=== PATIENT | male | born 1945 | race Caucasian/White ===

== ENCOUNTER 2024-05-16 01:57 | Inpatient (IN) | payer MEDICARE, OTHER, SELFPAY ==
[2024-05-16] VITALS (13 sets, daily range): BP systolic 129–167; BP diastolic 73–99; PULSE 77–103; RESP 13–28; TEMP 36.6–37.1; O2SAT 94–99; BMI 27.8; BMI 26.6; BMI 27.3
--- NOTE | 2024-05-16 02:26 | RAD_ITS ---
INDICATION: chest pain EXAMINATION/TECHNIQUE: X-RAY - XR Chest 2 Views COMPARISON: No relevant prior comparison study available FINDINGS: LINES/DEVICES: None. LUNGS: No consolidation, edema or effusion. No pneumothorax. MEDIASTINUM AND CARDIOVASCULAR STRUCTURES: Cardiac silhouette not enlarged. Central airways and mediastinal contour are unremarkable. BONES AND SOFT TISSUES: Unremarkable. RAD/Chest PA and Lateral IMPRESSION: No radiographic evidence of acute cardiopulmonary disease. Electronically Signed: Joyce Hernandez MD at 3:39 EDT ,
[2024-05-16] MEDS: Nitroglycerin Oint 1 INCH PACKET TD ×4 (02:34→21:09)
[2024-05-16] MEDS: 0.9% Normal Saline (1000mL) 1,000 ML 200 ML IV (02:34)
--- NOTE | 2024-05-16 02:35 | EX.ED.DYSGE1 ---
HPI History of Present Illness Chief Complaint: Chest Pain Informant: patient, spouse/S.O. and EMS Narrative Narrative: Patient is a 78-year-old male with past medical history of GERD and known right bundle branch block. He states that he went to bed normally and then awoke around 1:15 in the morning with sensation of chest discomfort that he states was radiating towards the left and right shoulder as well as his jaw. He states it was more of a pressure sensation and with this he had shortness of breath and diaphoresis. He reports that his father had multiple heart attacks starting at age 50. With concern this was cardiac in nature EMS was called. EMS confirmed he did look pale and diaphoretic and provided 4 baby aspirin and a subungual nitro. Upon arrival to the ER the patient reports that his symptoms have almost completely resolved. However as there is concern that this was an acute coronary event he presents for evaluation. He denies any recent surgery travel or history of DVT/PE [facility] Medical History (Updated 05/16/24 @ 06:[address] Kishor Cyr, DO) Osteoporosis Asthma Myocardial infarct Chest pain Squamous cell carcinoma Non-cancerous growth of soft tissue Right shoulder tendonitis GERD (gastroesophageal reflux disease) Right bundle branch block Home Medications ?Medication ?Instructions ?Recorded ?Last Taken ?Type cholecalciferol (vitamin D3) 50 50 mcg PO QODAY 05/16/24 Unknown History mcg (2,000 unit) capsule (Vitamin D3) cyanocobalamin (vitamin B-12) 1,000 mcg PO DAILY 05/16/24 Unknown History 1,000 mcg capsule fluticasone propionate 50 2 spray intranasal DAILY PRN 05/16/24 Unknown History mcg/actuation nasal allergy symptoms spray,suspension (24 Hour Allergy Relief) omeprazole 20 mg capsule,delayed 20 mg PO DAILY 05/16/24 Unknown History release Allergy/AdvReac Type Severity Reaction Status Date / Time amoxicillin (From Augmentin) Allergy Severe Abd Verified 05/16/24 02:06 cramps/diarrhea clavulanic acid (From Allergy Severe Abd Verified 05/16/24 02:06 Augmentin) cramps/diarrhea etodolac Allergy Severe liver Verified 05/16/24 02:06 problems fluoxetine (From Prozac) Allergy Intermediate Hives Verified 05/16/24 02:06 Seasonal Allergies: Uncoded Allergy Intermediate sneezing Verified 05/16/24 02:06 Family History (Updated 05/16/24 @ 04:[address] Nathalie Escobar DO) Other Heart disease Hypertension Surgical History History of tonsillectomy and adenoidectomy Social History (Updated 05/16/24 @ 04:[address] Nathalie Escobar DO) household members: spouse housing: house current occupational status: retired Smoking Status: Never smoker substance use type: does not use ROS ROS ED Constitutional Constitutional ED: Reports sweats; Denies chills or fever(s) Eyes Eyes: Denies blurry vision or change in vision ENT ENT ED: Denies rhinorrhea or sore throat Cardiovascular Cardiovascular: Reports chest pain, palpitations and racing heartbeat Respiratory/Chest Respiratory/Chest: Reports dyspnea; Denies cough Gastrointestinal Gastrointestinal: Reports nausea; Denies abdominal pain, diarrhea or vomiting Genitourinary Genitourinary ED: Denies dysuria Musculoskeletal Musculoskeletal: Denies myalgias Integumentary Denies rash Neurologic Neurologic: Denies headache(s) Psychiatric Psychiatric: Reports anxiety Hematologic/Lymphatic Hematologic/Lymphatic: Denies easy bleeding or easy bruising EXAM Physical Exam Const Vital Signs: 05/16/24 01:58 05/16/24 02:09 05/16/24 02:58 Temperature 98.1 F Temperature Source Temporal Pulse Rate 79 79 Respiratory Rate 15 13 Respiratory Effort Normal Non-Labored Blood Pressure 167/94 H 154/84 H Blood Pressure Mean 118 107 Pulse Ox 95 99 Oxygen Delivery Method Room Air Room Air 05/16/24 04:00 Temperature Temperature Source Pulse Rate 100 Respiratory Rate 28 H Respiratory Effort Blood Pressure 154/86 H Blood Pressure Mean 108 Pulse Ox 98 Oxygen Delivery Method Room Air Positive well nourished and well developed General Appearance ED: well developed; Negative for pallor HEENT HEENT Narrative: Normocephalic atraumatic Eyes PERRL and EOMs intact bilaterally General Eye ED: Negative for pale conjunctiva or scleral icterus Neck supple and no JVD Chest Wall palpation of chest normal Chest Narrative: No bony deformity or crepitance noted No reproducible pain with palpation Resp normal respiratory effort and clear to auscultation bilaterally Cardio regular rate and regular rhythm Rate: other Other Details: Heart is regular rate and rhythm without murmurs rubs or gallop There is frequent ectopic beat noted Radial and carotid pulses are equal and symmetric GI normal to inspection, nondistended, normoactive bowel sounds, non-tender, non-distended and no masses GI Narrative: No voluntary guarding rigidity or pulsatile mass Auscultation: normoactive bowel sounds Palpation: soft Extremity normal to inspection Extremity Narrative: No asymmetric edema no pitting edema negative Homans' sign bilaterally Neuro oriented x3, CN's II-XII intact bilaterally and no sensory deficits noted Sensorium / Orientation: alert Motor Exam: strength 5/5 throughout Psych mental status grossly normal Skin no rashes or lesions noted and no wounds General Skin Exam: Negative for jaundice or pallor MDM MDM MDM Narrative Medical decision making narrative: Patient presented to the ER mildly hypertensive but otherwise with stable vitals. He reported that he he was having near resolution of his pain after receiving aspirin and nitro per EMS. Patient has a significant family history of coronary artery disease in his father but otherwise does not have traditional risk factors such as hypertension hyperlipidemia diabetes or smoking. His history is significant for acute coronary syndrome versus non-STEMI versus unstable angina. There is concern for acute kidney injury versus electrolyte abnormality such as hypokalemia or hypomagnesemia. There is also potential for lung pathology such as pneumonia or pneumothorax. Secondary to this basic labs were obtained. Patient's initial troponin was elevated 99 consistent with a non-STEMI. 2-hour delta increased to approximately 2000 which correlates with his presentation of symptoms. After his sublingual nitro essentially resolved his pain an inch of paste was applied. With the Nitropaste applied patient reported complete resolution of his chest discomfort. Chest x-ray revealed no lung pathology. At this time based on his elevated troponins he will need admitted for further testing such as stress test echo and heart cath. He was started on a heparin drip secondary to concern for non-STEMI. Medicine was contacted and they do agree to accept the patient at this time. Patient has remained hemodynamically stable and has reported complete resolution of his chest pain after nitroglycerin was applied. History & Record Review Discussion w/independent historian: Patient and Significant other Lab Data Attestation: I reviewed the patient's lab results. Labs: Laboratory Results - last 24 hr 05/16/24 05/16/24 05/16/24 02:19 03:41 04:18 WBC 10.6 RBC 4.45 L Hgb 13.2 Hct 40.2 MCV 90.3 MCH 29.7 MCHC 32.8 RDW Std Deviation 43.9 RDW Coeff of Maria G 13.3 Plt Count 388 MPV 8.9 Immature Gran % (Auto) 0.300 Neut % (Auto) 43.0 L Lymph % (Auto) 43.2 H [place] % (Auto) 9.9 Eos % (Auto) 2.7 Baso % (Auto) 0.9 Absolute Neuts (auto) 4.5 Absolute Lymphs (auto) 4.56 H Nucleated RBC % 0.2 PT 14.9 14.1 INR 1.2 1.1 APTT 28.6 27.8 Sodium 137 Potassium 3.8 Chloride 105 Carbon Dioxide 23.0 Anion Gap 9 BUN 17 Creatinine 1.22 Estim Creat Clear Calc 57.88 Est GFR (MDRD) Af Amer 74 Est GFR (MDRD) Non-Af 61 BUN/Creatinine Ratio 13.9 Glucose 134 H Calcium 9.2 Magnesium 2.2 Troponin I High Sens 99 H 2086 H* Radiography Diagnostic Testing: Clinical Impression(s) from Imaging Studies Chest X-Ray 05/16/24 02:26 IMPRESSION: No radiographic evidence of acute cardiopulmonary disease. Electronically Signed: Joyce Hernandez MD at 3:39 EDT Reading Location ID and State: [facility] / [place] Tel , Service support , Chest x-ray as interpreted by the emergency medicine physician reveals no acute infiltrate pneumothorax pleural effusion or widening of the mediastinum Management Discussion w/another healthcare provider: Hospitalist Critical Care Time Critical Care Time: Yes Critical care time (excluding procedures): Discussing w/Patient &/or Family/Batt Packer, Discussing w/Consultants and - (Critical care time of 33 minutes) Discharge Plan Dx/Rx/DC Orders Clinical Impression: NSTEMI, initial episode of care, Elevated blood pressure reading Disposition Disposition: Acute Care Hospital [facility] Discharge Date/Time: 05/16/24 04:48
[2024-05-16 02:37] LABS: Absolute Lymphocyte Count 4.56 X10^3/uL (0.83-4.51); Absolute Neutrophil Count 4.5 X10^3/uL (2.0-7.7); Basophil% 0.9 % (0-1); Eosinophil# 0.28 X10^3/uL; Eosinophils% 2.7 % (0-5); Hematocrit 40.2 % (40-54); Hemoglobin 13.2 g/dL (13.0-16.5); Lymphocyte # 4.56 X10^3/ul (0.83-4.51); Lymphocyte % 43.2 % (19-41); Mean Corp Hgb Conc 32.8 g/dL (32-36); Mean Corpuscular Hgb 29.7 pg (27.0-32.0); Mean Corpuscular Volume 90.3 fL (80-94); Mean Platelet Vol. 8.9 fl (6.2-12.0); Monocyte# 1.04 X10^3/uL; Monocyte% 9.9 % (0-10); NRBC Flagged by Analyzer 0.2 % (0-5); Neutrophil # 4.54 X10^3/uL (2.7-7.7); Platelet Count 388 K/mm3 (150-450); RBC Distribution Width CV 13.3 % (11.6-14.6); RBC Distribution Width SD 43.9 fl (35.1-43.9); Red Blood Count 4.45 M/mm3 (4.6-6.2); White Blood Count 10.6 K/mm3 (4.4-11.0)
[2024-05-16 02:47] LABS: International Normalized Ratio 1.2; Prothrombin Time (Protime)PT. 14.9 SECONDS (11.7-14.9)
[2024-05-16 02:48] LABS: Partial Thromboplast Time 28.6 Seconds (24.1-36.2)
[2024-05-16 03:27] LABS: Anion Gap 9 (5-15); BUN 17 mg/dL (7-18); BUN/Creat Ratio 13.9 RATIO (10-20); Calcium,Total 9.2 mg/dL (8.5-10.1); Chloride 105 mmol/L (98-107); Creatinine, Serum 1.22 mg/dL (0.70-1.30); EST Glomerular Filtration Rate 61 mL/min (>60); Est Glom Filt Rate - Afr Amer 74 mL/min (>60); Estimated Creatinine Clearance 57.88 ml/min; Glucose 134 mg/dL (74-106); Magnesium 2.2 mg/dL (1.6-2.6); Potassium 3.8 mmol/L (3.5-5.1); Sodium Level 137 mmol/L (136-145); Troponin-I HS 99 pg/mL (3.0-78.0)
--- NOTE | 2024-05-16 04:32 | HP.PCM.HOS_ITS ---
HPI - General General Date of Admission: 05/16/24 Date of Service: 05/16/24 Chief Complaint: Chest pain HPI Narrative MAYKEL PRAJAPATI, is a 78 M who presented to the emergency department at [facility] on 05/16/2024 early in the morning with chest pain. He reported that he went to bed normally and then woke up around 1:15 in the morning with a sensation of chest discomfort. Pain was radiating towards his left and right shoulder as well into his jaw bilaterally. He indicated it was more of a pressure-like sensation and sharp pain and he had associated shortness of breath and diaphoresis. Patient did report that over the last couple days he has been more fatigued than typical. He has had to do some housework and is noted that he has had worsening shortness of breath with exertion as well as significant fatigue that is not his baseline. Patient reported his father had multiple heart attacks starting at the age of 50 but he has never had any cardiac issues previously. He does not have a history of elevated blood pressure, diabetes, hyperlipidemia, or tobacco abuse. EMS was called due to his symptoms and they did confirm that he looks pale and diaphoretic upon arrival. He was given 4 baby aspirin and 1 sublingual nitroglycerin. Upon arrival to the emergency department his symptoms had almost completely resolved and did completely resolve after he was placed on 1 inch of Nitropaste. He was asymptomatic at the time of my evaluation. Vital signs on presentation showed a temperature of 98.1, heart rate 79, respiratory rate 15, blood pressure 167/94 and pulse ox was 95% on room air. His CBC was overtly unremarkable other than a leukocytosis with 43.2% lymphocytosis. Coags were normal. Chemistry panel was unremarkable other than hyperglycemia with a glucose of 134. Initial troponin was 99 with a delta troponin of 2086. Chest x-ray was unremarkable. EKG showed what seems to be a rate variable bundle branch block. He has documentation of previous RBBB. There were no ST-T wave segments consistent with acute ischemia. Intervals were normal and few PACs were noted. [facility] Medical History Squamous cell carcinoma Non-cancerous growth of soft tissue Right shoulder tendonitis GERD (gastroesophageal reflux disease) Right bundle branch block Home Medications ?Medication ?Instructions ?Recorded ?Last Taken ?Type cholecalciferol (vitamin D3) 50 50 mcg PO QODAY 05/16/24 Unknown History mcg (2,000 unit) capsule (Vitamin D3) cyanocobalamin (vitamin B-12) 1,000 mcg PO DAILY 05/16/24 Unknown History 1,000 mcg capsule fluticasone propionate 50 2 spray intranasal DAILY PRN 05/16/24 Unknown History mcg/actuation nasal allergy symptoms spray,suspension (24 Hour Allergy Relief) omeprazole 20 mg capsule,delayed 20 mg PO DAILY 05/16/24 Unknown History release Allergy/AdvReac Type Severity Reaction Status Date / Time amoxicillin (From Augmentin) Allergy Severe Abd Verified 05/16/24 02:06 cramps/diarrhea clavulanic acid (From Allergy Severe Abd Verified 05/16/24 02:06 Augmentin) cramps/diarrhea etodolac Allergy Severe liver Verified 05/16/24 02:06 problems fluoxetine (From Prozac) Allergy Intermediate Hives Verified 05/16/24 02:06 Seasonal Allergies: Uncoded Allergy Intermediate sneezing Verified 05/16/24 02:06 Family History (Updated 05/16/24 @ 04:[address] Nathalie Escobar DO) Other Heart disease Hypertension Surgical History (Updated 05/16/24 @ 02:09 by Leny Hart) History of tonsillectomy and adenoidectomy Social History (Updated 05/16/24 @ 04:[address] Nathalie Escobar DO) household members: spouse housing: house current occupational status: retired Smoking Status: Never smoker substance use type: does not use ROS Constitutional Constitutional: Reports fatigue; Denies anorexia, change in weight, chills, fever(s), malaise, night sweats, weakness or other Eyes Eyes: Denies blurry vision, change in eye color, change in vision, discharge from eye(s), double vision, erythema, eye pain, loss of vision or other ENT HEENT: Denies abnormal hearing, dysphagia, ear pain, epistaxis, headache(s), hearing loss, nasal congestion, nasal discharge, post nasal drip, sinus pressure, sore throat or other Cardiovascular Cardiovascular: Reports chest pain, dyspnea on exertion and other Details: Diaphoresis ; Denies claudication, edema, lightheadedness, orthopnea, palpitations, paroxysmal nocturnal dyspnea, rapid heart rate or syncope Respiratory/Chest Respiratory/Chest: Reports dyspnea; Denies cough, excessive phlegm production, hemoptysis, productive cough, shortness of breath at rest, shortness of breath with exertion, wheezing or other Gastrointestinal Gastrointestinal: Denies abdominal pain, coffee ground emesis, constipation, diarrhea, dyspepsia, hematemesis, hematochezia, loose stools, melena, nausea, vomiting or other Genitourinary Genitourinary: Denies burning urination, difficulty urinating, dysuria, hematuria, nocturia, urinary frequency, urinary hesitancy, urinary incontinence, urinary urgency or other Musculoskeletal Musculoskeletal: Reports other Details: Bilateral shoulder and jaw pain ; Denies arthralgias, back pain, joint pain, joint stiffness, joint swelling, myalgias or neck pain Neurologic Neurologic: Denies abnormal gait, abnormal speech, confusion, disequilibrium, dizziness, focal weakness, headache(s), numbness, paresthesias, seizure-like activity, seizures, syncope, tingling, tremor(s) or other Psychiatric Psychiatric: Denies anxiety, depression, homicidal ideation, suicidal ideation or other Endocrine Endocrinology: Denies change in body appearance, cold intolerance, excessive sweating, heat intolerance, polydipsia, polyuria or other Hematologic/Lymphatic Hematologic/Lymphatic: Denies anemia, easy bleeding, easy bruising, lymphadenopathy or other Allergic/Immunologic Allergic/Immunologic: Denies rhinitis, hives, eczemia, asthma or other Vital Signs Vital Signs Vital Signs: 05/16/24 01:58 05/16/24 02:09 05/16/24 02:58 Temperature 98.1 F Temperature Source Temporal Pulse Rate 79 79 Respiratory Rate 15 13 Respiratory Effort Normal Non-Labored Blood Pressure 167/94 H 154/84 H Blood Pressure Mean 118 107 Pulse Ox 95 99 Oxygen Delivery Method Room Air Room Air 05/16/24 04:00 05/16/24 04:25 Temperature 98.1 F Temperature Source Pulse Rate 100 77 Respiratory Rate 28 H 15 Respiratory Effort Blood Pressure 154/86 H 156/93 H Blood Pressure Mean 108 114 Pulse Ox 98 99 Oxygen Delivery Method Room Air Weight Weight: 89.1 kg Body Mass Index (BMI) 27.8 Physical Exam Const alert, oriented x3, no apparent distress and well nourished Constitutional Narrative: Very pleasant, older, white male, lying in bed, currently appears comfortable, does not appear toxic, at bedside General Appearance: cooperative HEENT normocephalic, head/scalp atraumatic, hearing grossly normal bilaterally and moist oral mucous membranes HEENT Narrative: Mallampati 2, no thrush Resp normal respiratory effort, no retractions, no use of accessory muscles and clear to auscultation bilaterally Auscultation: Negative for rales, rhonchi or wheezes Cardio regular rate, regular rhythm, S1 normal heart sound, S2 normal heart sound, no murmurs, no rub, no gallops and no clicks Cardio Narrative: Few ectopic beats GI normal to inspection, nondistended, normoactive bowel sounds, soft to palpation and non-tender Extremity no clubbing, cyanosis or edema Extremity Narrative: 2+ pedal pulses, 2+ radial pulses Neuro oriented x3, moves all extremities and no focal motor deficits Speech: speech normal Psych affect normal Psych Narrative: Extremely pleasant, interacts appropriately Results Lab / Micro Data 05/16/24 02:19 05/16/24 02:19 Labs: Laboratory Results - last 24 hr 05/16/24 02:19: WBC 10.6, RBC 4.45 L, Hgb 13.2, Hct 40.2, MCV 90.3, MCH 29.7, MCHC 32.8, RDW Std Deviation 43.9, RDW Coeff of Maria G 13.3, Plt Count 388, MPV 8.9, Immature Gran % (Auto) 0.300, Neut % (Auto) 43.0 L, Lymph % (Auto) 43.2 H, [place] % (Auto) 9.9, Eos % (Auto) 2.7, Baso % (Auto) 0.9, Absolute Neuts (auto) 4.5, Absolute Lymphs (auto) 4.56 H, Nucleated RBC % 0.2, PT 14.9, INR 1.2, APTT 28.6, Sodium 137, Potassium 3.8, Chloride 105, Carbon Dioxide 23.0, Anion Gap 9, BUN 17, Creatinine 1.22, Estim Creat Clear Calc 57.88, Est GFR (MDRD) Af Amer 74, Est GFR (MDRD) Non-Af 61, BUN/Creatinine Ratio 13.9, Glucose 134 H, Calcium 9.2, Magnesium 2.2, Troponin I High Sens 99 H Imaging Radiology Impression Chest X-Ray 05/16/24 02:26 IMPRESSION: No radiographic evidence of acute cardiopulmonary disease. Electronically Signed: Joyce Hernandez MD at 3:39 EDT Reading Location ID and State: [facility] / [place] Tel , Service support , Assessment & Plan Assessment/Plan (1) NSTEMI, initial episode of care: (2) Hyperglycemia: (3) Elevated blood pressure reading: PLAN: Plan NSTEMI -Initial troponin 99 with repeat pending at admission -Will do full cycling of cardiac enzymes -Continue Nitropaste -Start heparin drip -Aspirin 81 mg daily -High intensity dose statin and will check lipid profile -Check hemoglobin A1c -Coreg 3.125 twice daily -Could consider addition of lisinopril if blood pressure remains elevated despite Coreg -Cardiac diet -Check echocardiogram -Consult cardiology for cardiac catheterization on Friday Elevated blood pressure -Patient without documented history of hypertension -Unclear if this is due to acute stress or if he has underlying undiagnosed hypertension -Start Coreg 3.125 twice daily -Continue to monitor Chronic right bundle branch block -Appears that may be rate variable -Patient will be monitored on telemetry Hyperglycemia without history of DM-2 -Check hemoglobin A1c -Elevation is only mild and may be stress response GERD -Continue home PPI Seasonal allergies -Continue home nasal spray DVT prophylaxis -Heparin drip CODE STATUS -Full code as verified on admission Charges/Coding Visit Charges Inpatient E&M: 97394 Init Hosp L2
[2024-05-16] MEDS: HEPARIN/D5w 25,000 UNITS 25,000 UNITS/250 ML IV.SOLN. 10 UNITS CONT INF (04:35)
[2024-05-16] MEDS: Heparin Injection (Vial) 5,000 UNIT/ML VIAL 4000 UNIT IV (04:36)
[2024-05-16 04:44] LABS: International Normalized Ratio 1.1; Prothrombin Time (Protime)PT. 14.1 SECONDS (11.7-14.9)
[2024-05-16 04:45] LABS: Partial Thromboplast Time 27.8 Seconds (24.1-36.2)
[2024-05-16 04:45] LABS: Troponin-I HS 2086 pg/mL (3.0-78.0)
--- NOTE | 2024-05-16 04:56 | PCM.HOSP.N ---
Hospitalist Note CODE STATUS as documented in H&P was noted as full code however this was documented in error and patient is DNR CCA okay for short-term intubation. I did discuss that his CODE STATUS would be revoked during cardiac catheterization when performed and he voiced understanding and was agreeable to this.
--- NOTE | 2024-05-16 05:33 | EKG12_ITS ---
Test Reason : CP Blood Pressure : / mmHG Vent. Rate : 105 BPM Atrial Rate : 105 BPM P-R Int : 160 ms QRS Dur : 122 ms QT Int : 386 ms P-R-T Axes : 048 084 011 degrees QTc Int : 510 ms Sinus tachycardia with Premature atrial complexes Right bundle branch block Abnormal ECG When compared with ECG of 16-MAY-2024 01:59, MANUAL COMPARISON REQUIRED, DATA IS UNCONFIRMED Confirmed by Caleb Olivarez ([id number]), movie editor KAY AVILES ([id number]) on 05/18/2024 6:43:25 AM Referred By: DAVID Confirmed By:Claeb Olivarez
--- NOTE | 2024-05-16 05:59 | EKG12_ITS ---
Test Reason : CP Blood Pressure : / mmHG Vent. Rate : 076 BPM Atrial Rate : 076 BPM P-R Int : 154 ms QRS Dur : 124 ms QT Int : 430 ms P-R-T Axes : 055 082 030 degrees QTc Int : 483 ms Sinus rhythm with marked sinus arrhythmia with Premature ventricular complexes Right bundle branch block Abnormal ECG Confirmed by Caleb Olivarez ([id number]), deputy editor in chief KAY AVILES ([id number]) on 05/17/2024 10:54:28 AM Referred By: GABRIEL Confirmed By:Caleb Olivarez
--- NOTE | 2024-05-16 06:50 | PN.HOSP_ITS ---
Reason for Visit Reason for Visit: Diagnoses Non-ST elevation (NSTEMI) myocardial infarction (05/16/24) Elevated blood-pressure reading, without diagnosis of hypertension (05/16/24) Hyperglycemia, unspecified (05/16/24) Subjective Subjective Patient notes feeling significantly improved since initial ED arrival with improvement of chest pain now only in the midsternal region without radiation and reports it is more of an ache as if he is stretching and pull something rating it 1-2 out of 10 in severity. He denies any dyspnea, diaphoresis or nausea since initial arrival. Discussed plan of care which include cardiac catheterization 05/17/24, echocardiogram to which patient is amenable. Patient denies fevers, chills, nausea, emesis, abdominal pain or dyspnea. Objective Data Objective Data Vital Signs: Vital Signs Temp Pulse Resp BP Pulse Ox O2 Del Method 98.4 F 89 16 148/92 H 99 Room Air 05/16/24 05:04 05/16/24 06:21 05/16/24 05:04 05/16/24 06:33 05/16/24 05:04 05/16/24 05:04 Oxygen Delivery Method Room Air Weight: 188 lb 11.451 oz Body Mass Index (BMI) 26.6 Lab / Micro Data 05/16/24 07:54 05/16/24 07:54 Labs: Laboratory Results - last 24 hr 05/16/24 02:19: WBC 10.6, RBC 4.45 L, Hgb 13.2, Hct 40.2, MCV 90.3, MCH 29.7, MCHC 32.8, RDW Std Deviation 43.9, RDW Coeff of Maria G 13.3, Plt Count 388, MPV 8.9, Immature Gran % (Auto) 0.300, Neut % (Auto) 43.0 L, Lymph % (Auto) 43.2 H, [place] % (Auto) 9.9, Eos % (Auto) 2.7, Baso % (Auto) 0.9, Absolute Neuts (auto) 4.5, Absolute Lymphs (auto) 4.56 H, Nucleated RBC % 0.2, PT 14.9, INR 1.2, APTT 28.6, Sodium 137, Potassium 3.8, Chloride 105, Carbon Dioxide 23.0, Anion Gap 9, BUN 17, Creatinine 1.22, Estim Creat Clear Calc 57.88, Est GFR (MDRD) Af Amer 74, Est GFR (MDRD) Non-Af 61, BUN/Creatinine Ratio 13.9, Glucose 134 H, Calcium 9.2, Magnesium 2.2, Troponin I High Sens 99 H 05/16/24 03:41: PT 14.1, INR 1.1, APTT 27.8 05/16/24 04:18: Troponin I High Sens 2086 H* Radiography Diagnostic Testing: Radiology Impression Chest X-Ray 05/16/24 02:26 IMPRESSION: No radiographic evidence of acute cardiopulmonary disease. Electronically Signed: Joyce Hernandez MD at 3:39 EDT , Physical Exam Narrative Physical Examination: General: Awake, alert, oriented x 3 and cooperative, initially ambulating the PCU from the bathroom to the bed, denies any acute complaints and reports that his chest discomfort is markedly improved, currently rated 1-2 out of 10 in severity and very mild he reports. Skin: Normal color, normal turgor, no icterus, no cyanosis. HEENT: AT/NC, EOMI, PERRLA, MMM. Lungs: CTA bilaterally, moderate effort, mild decrease BL bases, no rales, ronchi or wheezing. Heart: Regular rate and rhythm; no gallop, rub audible. Abdomen: Soft, NTTP, ND, normal BS. Extremities: No cyanosis, clubbing, or edema. Neurological: Patient awake, alert, oriented as noted, cognitive function intact; pupils equally reactive to light and accommodation, cranial nerves grossly normal, moving all 4 extremities, no focal deficits, strength mildly global decreased. Psychiatric: Affect appears normal, no acute evidence of depressive or anxiety feelings. Assessment & Plan Assessment/Plan (1) NSTEMI, initial episode of care: (2) Hyperglycemia: (3) Elevated blood pressure reading: PLAN: Plan The patient is a 78 y/o M w/ PMHx: Asthma w/ Allergic Rhinitis, GERD who presents to the [facility] ED on 05/16/24 with history of onset of chest discomfort awakening him at 1:15 in the morning on day of presentation radiating towards his left and right shoulder as well as jaw bilaterally, pressure-like in sensation with associated dyspnea and diaphoresis with increased recent fatigue over the last several days and some dyspnea with exertion prompting eventual ED evaluation. #1. Chest Pain w/ Acute NSTEMI: EKG in ED w/ rate variable bundle branch block with prior right bundle branch block with no ST-T wave segments concerning for acute ischemia with occasional PAC, CXR w/ no acute cardiopulmonary findings. Trop elevated, initial 99 with delta troponin 2086. Admitted to PCU, maintain on telemetry monitoring, continue serial enzymes, maintained on a heparin drip, magnesium 2.2, CHO requested, continue medical management w/ asa, Coreg added, high intensity statin w/ AM FLP requested. ECHO requested. Cardiology consulted for cardiac catheterization tentatively plan for 05/17/24. Currently maintained on Nitropaste. If BP remains appropriate/elevated consider addition of also lisinopril. #2. Elevated BP without hypertensive diagnosis: In the setting initiated on Coreg lower dose twice daily, if blood pressure jamari elevated will also add low-dose lisinopril continue monitor, PRN hydralazine if needed. #3. Hyperglycemia, mild: Admission glucose 134, possibly stress response, no diabetic history, hemoglobin A1c requested and pending. #4. Chronic asthma with allergic rhinitis: Not on any chronic inhaler, will have as needed butyryl, encourage head of bed, I-S, continue fluticasone nasal spray #5. GERD: We will continue patient on PPI #6. DVT prophylaxis: Will continue heparin drip as noted. #7. Code status: DNR-CCA with intubation allowance. Charges/Coding Procedures Hospitalists Procedures: Other Procedure - See Report (Billing code: [id number], evaluation same day as admission, unable to bill.)
[2024-05-16 08:05] LABS: Absolute Neutrophil Count 7.9 X10^3/uL (2.0-7.7); Basophil# 0.05 X10^3/uL; Basophil% 0.5 % (0-1); Eosinophil# 0.05 X10^3/uL; Eosinophils% 0.5 % (0-5); Hematocrit 35.4 % (40-54); Hemoglobin 11.9 g/dL (13.0-16.5); Lymphocyte % 16.4 % (19-41); Mean Corp Hgb Conc 33.6 g/dL (32-36); Mean Corpuscular Hgb 30.4 pg (27.0-32.0); Mean Corpuscular Volume 90.3 fL (80-94); Mean Platelet Vol. 8.7 fl (6.2-12.0); Monocyte# 0.62 X10^3/uL; NRBC Flagged by Analyzer 0 % (0-5); Neutrophil # 7.91 X10^3/uL (2.7-7.7); Neutrophil % 76.3 % (47-70); Platelet Count 316 K/mm3 (150-450); RBC Distribution Width CV 13.2 % (11.6-14.6); RBC Distribution Width SD 43.4 fl (35.1-43.9); Red Blood Count 3.92 M/mm3 (4.6-6.2); White Blood Count 10.4 K/mm3 (4.4-11.0)
[2024-05-16 08:40] LABS: ALB/GLOB Ratio 1.3 RATIO (0.9-2.4); AST(SGOT) 36 U/L (15-37); Alanine Aminotransfer ALT/SGPT 21 U/L (16-61); Albumin, Serum 3.2 g/dL (3.2-5.0); Alkaline Phosphatase 46 U/L (45-117); Anion Gap 5 (5-15); BUN 14 mg/dL (7-18); BUN/Creat Ratio 13.6 RATIO (10-20); Calcium,Total 8.4 mg/dL (8.5-10.1); Chloride 108 mmol/L (98-107); Cholesterol 175 mg/dL (200); Creatinine, Serum 1.03 mg/dL (0.70-1.30); EST Glomerular Filtration Rate 74 mL/min (>60); Est Glom Filt Rate - Afr Amer 90 mL/min (>60); Globulin 2.5 g/dL (2.2-4.2); Glucose 136 mg/dL (74-106); High Density Lipoprotein 38 mg/dL; Phosphorus 2.4 mg/dL (2.5-4.9); Potassium 4.6 mmol/L (3.5-5.1); Protein, Total 5.7 g/dL (6.4-8.2); Sodium Level 138 mmol/L (136-145); Triglycerides 65 mg/dL; Very Low Density Lipoprotein 13 mg/dL (5-40)
[2024-05-16 08:45] LABS: Troponin-I HS 7318 pg/mL (3.0-78.0)
[2024-05-16] MEDS: Aspirin E.C. 81 MG Tablet PO (09:21)
[2024-05-16] MEDS: Pantoprazole Sodium 20 MG Tablet PO (09:21)
[2024-05-16] MEDS: Carvedilol 3.125 MG TABLET PO ×2 (09:21→21:09)
[2024-05-16 09:30] LABS: Hemoglobin A1c 5.8 % (3.8-5.6)
[2024-05-16 10:39] LABS: Partial Thromboplast Time 62.1 Seconds (24.1-36.2)
--- NOTE | 2024-05-16 13:56 | CON.PCM.CA_ITS ---
Assessment & Plan Assessment/Plan (1) NSTEMI, initial episode of care: PLAN: Continue aspirin. Heparin. Already started on beta-blockers. Add nitrates. Echocardiogram ordered. Recommend coronary angiography with possible revascularization. Risks benefits and alternatives explained to patient. He understands these and wishes to proceed. Will schedule for coronary angiography for tomorrow morning. (2) Hypertension: PLAN: Beta-blockers. Nitrates. HPI Consult Data Date of Consult: 05/16/24 HPI Narrative Reason for Consultation: NSTEMI HPI Narrative: 78-year-old gentleman with no significant past medical history. Woke up earlier this morning with anterior chest discomfort radiating to bilateral shoulders. Positive diaphoresis. Positive shortness of breath. Discomfort relieved with sublingual nitroglycerin given by EMS. Workup has revealed elevated troponin, ruling him in for NSTEMI. Presently pain-free. Denies any previous history of angina. [facility] Medical History (Updated 05/16/24 @ 13:[address] Hill Ozuna MD) Osteoporosis Asthma Myocardial infarct Chest pain Squamous cell carcinoma Non-cancerous growth of soft tissue Right shoulder tendonitis GERD (gastroesophageal reflux disease) Right bundle branch block Home Medications ?Medication ?Instructions ?Recorded ?Last Taken ?Type cholecalciferol (vitamin D3) 50 50 mcg PO QODAY 05/16/24 Unknown History mcg (2,000 unit) capsule (Vitamin D3) cyanocobalamin (vitamin B-12) 1,000 mcg PO DAILY 05/16/24 Unknown History 1,000 mcg capsule fluticasone propionate 50 2 spray intranasal DAILY PRN 05/16/24 Unknown History mcg/actuation nasal allergy symptoms spray,suspension (24 Hour Allergy Relief) omeprazole 20 mg capsule,delayed 20 mg PO DAILY 05/16/24 Unknown History release Allergy/AdvReac Type Severity Reaction Status Date / Time amoxicillin (From Augmentin) Allergy Severe Abd Verified 05/16/24 02:06 cramps/diarrhea clavulanic acid (From Allergy Severe Abd Verified 05/16/24 02:06 Augmentin) cramps/diarrhea etodolac Allergy Severe liver Verified 05/16/24 02:06 problems fluoxetine (From Prozac) Allergy Intermediate Hives Verified 05/16/24 02:06 Seasonal Allergies: Uncoded Allergy Intermediate sneezing Verified 05/16/24 02:06 Family History (Updated 05/16/24 @ 04:[address] Nathalie Escobar DO) Other Heart disease Hypertension Surgical History History of tonsillectomy and adenoidectomy Social History (Updated 05/16/24 @ 04:[address] Nathalie Escobar DO) household members: spouse housing: house current occupational status: retired Smoking Status: Never smoker substance use type: does not use Physical Exam Narrative Comfortable. No distress. Heart sounds 1 and 2 are normal. No murmurs or rubs are noted. Chest clear to auscultation bilaterally. Alert oriented x 3. No ankle edema. Risk Stratification Risk Stratification Applicable: No Objective Data Vital Signs: Vital Signs Temp Pulse Resp BP Pulse Ox O2 Del Method 98.0 F 94 16 149/82 H 94 Room Air 05/16/24 11:00 05/16/24 11:00 05/16/24 11:00 05/16/24 11:00 05/16/24 11:00 05/16/24 11:00 Oxygen Delivery Method Room Air Weight: 193 lb 9.054 oz Body Mass Index (BMI) 27.3 Intake & Output: Intake and Output for Last 24 Hours 05/14/24 05/15/24 05/16/24 23:59 23:59 23:59 Intake Total 1060 / 1060 Balance 1060 / 1060 Lab / Micro Data 05/16/24 07:54 05/16/24 07:54 Labs: Laboratory Results - last 24 hr 05/16/24 02:19: WBC 10.6, RBC 4.45 L, Hgb 13.2, Hct 40.2, MCV 90.3, MCH 29.7, MCHC 32.8, RDW Std Deviation 43.9, RDW Coeff of Maria G 13.3, Plt Count 388, MPV 8.9, Immature Gran % (Auto) 0.300, Neut % (Auto) 43.0 L, Lymph % (Auto) 43.2 H, [place] % (Auto) 9.9, Eos % (Auto) 2.7, Baso % (Auto) 0.9, Absolute Neuts (auto) 4.5, Absolute Lymphs (auto) 4.56 H, Nucleated RBC % 0.2, PT 14.9, INR 1.2, APTT 28.6, Sodium 137, Potassium 3.8, Chloride 105, Carbon Dioxide 23.0, Anion Gap 9, BUN 17, Creatinine 1.22, Estim Creat Clear Calc 57.88, Est GFR (MDRD) Af Amer 74, Est GFR (MDRD) Non-Af 61, BUN/Creatinine Ratio 13.9, Glucose 134 H, Calcium 9.2, Magnesium 2.2, Troponin I High Sens 99 H 05/16/24 03:41: PT 14.1, INR 1.1, APTT 27.8, Hemoglobin A1c 5.8 H 05/16/24 04:18: Troponin I High Sens 2086 H* 05/16/24 07:54: WBC 10.4, RBC 3.92 L, Hgb 11.9 L, Hct 35.4 L, MCV 90.3, MCH 30.4, MCHC 33.6, RDW Std Deviation 43.4, RDW Coeff of Maria G 13.2, Plt Count 316, MPV 8.7, Immature Gran % (Auto) 0.300, Neut % (Auto) 76.3 H, Lymph % (Auto) 16.4 L, [place] % (Auto) 6.0, Eos % (Auto) 0.5, Baso % (Auto) 0.5, Absolute Neuts (auto) 7.9 H, Absolute Lymphs (auto) 1.70, Nucleated RBC % 0, Sodium 138, Potassium 4.6, Chloride 108 H, Carbon Dioxide 25.0, Anion Gap 5, BUN 14, Creatinine 1.03, Estim Creat Clear Calc 63.00, Est GFR (MDRD) Af Amer 90, Est GFR (MDRD) Non-Af 74, BUN/Creatinine Ratio 13.6, Glucose 136 H, Calcium 8.4 L, Phosphorus 2.4 L, Magnesium 2.0, Total Bilirubin 0.40, AST 36, ALT 21, Alkaline Phosphatase 46, T roponin I High Sens 7318 H*, Total Protein 5.7 L, Albumin 3.2, Globulin 2.5, Albumin/Globulin Ratio 1.3, Triglycerides 65, Cholesterol 175, LDL Cholesterol 124, VLDL Cholesterol 13, HDL Cholesterol 38 L, TSH 1.600 05/16/24 10:21: APTT 62.1 H Rhythm Strip Rhythm Strip: Sinus Rhythm Cardiology Labs/Tests 05/16/24 02:19: WBC 10.6, RBC 4.45 L, Hgb 13.2, Hct 40.2, MCV 90.3, MCH 29.7, MCHC 32.8, Plt Count 388, MPV 8.9, Immature Gran % (Auto) 0.300, Neut % (Auto) 43.0 L, Lymph % (Auto) 43.2 H, [place] % (Auto) 9.9, Eos % (Auto) 2.7, Baso % (Auto) 0.9, Absolute Neuts (auto) 4.5, Nucleated RBC % 0.2, PT 14.9, INR 1.2, APTT 28.6, Sodium 137, Potassium 3.8, Chloride 105, Carbon Dioxide 23.0, Anion Gap 9, BUN 17, Creatinine 1.22, Est GFR (MDRD) Af Amer 74, Est GFR (MDRD) Non-Af 61, BUN/Creatinine Ratio 13.9, Glucose 134 H, Calcium 9.2, Magnesium 2.2 05/16/24 03:41: PT 14.1, INR 1.1, APTT 27.8, Hemoglobin A1c 5.8 H 05/16/24 07:54: WBC 10.4, RBC 3.92 L, Hgb 11.9 L, Hct 35.4 L, MCV 90.3, MCH 30.4, MCHC 33.6, Plt Count 316, MPV 8.7, Immature Gran % (Auto) 0.300, Neut % (Auto) 76.3 H, Lymph % (Auto) 16.4 L, [place] % (Auto) 6.0, Eos % (Auto) 0.5, Baso % (Auto) 0.5, Absolute Neuts (auto) 7.9 H, Nucleated RBC % 0, Sodium 138, Potassium 4.6, Chloride 108 H, Carbon Dioxide 25.0, Anion Gap 5, BUN 14, Creatinine 1.03, Est GFR (MDRD) Af Amer 90, Est GFR (MDRD) Non-Af 74, BUN/Creatinine Ratio 13.6, Glucose 136 H, Calcium 8.4 L, Phosphorus 2.4 L, Magnesium 2.0, Total Bilirubin 0.40, Triglycerides 65, Cholesterol 175, LDL Cholesterol 124, VLDL Cholesterol 13, HDL Cholesterol 38 L 05/16/24 10:21: APTT 62.1 H Rhythm: EKG: Sinus rhythm with right bundle branch block ECHO: Stress Test: Cardiac Cath: PCI: CT Surgery: Holter monitor: EPS: PPM: CXR: Chest CT Scan: Radiography Diagnostic Testing: Radiology Impression Chest X-Ray 05/16/24 02:26 IMPRESSION: No radiographic evidence of acute cardiopulmonary disease. Electronically Signed: Joyce Hernandez MD at 3:39 EDT Reading Location ID and State: [facility] / [place] Tel , Service support ,
--- NOTE | 2024-05-16 13:59 | ECHOCS_ITS ---
Reason For Study: Chest pain Procedure This was a 2D Doppler, Color Flow transthoracic echocardiogram. The study was technically difficult. Exam performed portable in patient room. Left Ventricle Sigmoid septum. The estimated ejection fraction is 35 %. Moderately severe global left ventricular systolic dysfunction. Stage 1 diastolic dysfunction. The apex is akinetic. Right Ventricle Normal RV size. Normal systolic function. Atria The left and right atria are normal. Prominent eustachian valve. Mitral Valve The mitral valve is structurally normal. No prolapse or stenosis seen. Trivial mitral valve insufficiency. Tricuspid Valve Normal tricuspid valve. Mild (1+) tricuspid valve insufficiency. Pulmonary artery systolic pressure is 33 mmHg. Aortic Valve Trisinus/trileaflet aortic valve. Mild focal aortic valve thickening. There is no aortic stenosis. Pulmonic Valve Normal pulmonic valve. Mild (1+) pulmonic valve insufficiency. Great Vessels Normal aortic root. Pericardium/Pleural No pericardial effusion. MMode/2D Measurements & Calculations LVIDd: 4.6 cm IVSd: 1.0 cm LVOT diam: 2.0 cm LVIDs: 2.5 cm LVPWd: 1.1 cm LVOT area: 3.2 cm2 RVDd: 3.9 cm FS: 46.1 % Ao root diam: 3.0 cm LAV(MOD-bp): 67.4 ml LVAd ap4: 27.5 cm2 LAV(MOD-bp) Indexed: 33.1 ml/m2 LVLd ap4: 7.4 cm LAV(MOD-sp2): 62.8 ml EDV(MOD-sp4): 83.9 ml LAV(MOD-sp4): 61.4 ml EDV(sp4-el): 86.7 ml LVAs ap4: 22.7 cm2 LVLs ap4: 7.6 cm ESV(MOD-sp4): 55.5 ml ESV(sp4-el): 57.9 ml EF(MOD-sp4): 33.9 % EF(sp4-el): 33.2 % LVAd ap2: 27.4 cm2 SV(MOD-sp4): 28.4 ml SV(MOD-sp2): 36.3 ml LVLd ap2: 7.5 cm EDV(MOD-sp2): 84.5 ml EDV(sp2-el): 84.7 ml LVAs ap2: 20.0 cm2 LVLs ap2: 7.3 cm ESV(MOD-sp2): 48.2 ml ESV(sp2-el): 47.0 ml EF(MOD-sp2): 43.0 % SV(sp4-el): 28.8 ml LA dimension(2D): 3.3 cm LA A4 area: 21.1 cm2 RA A4 area: 16.3 cm2 TAPSE: 1.5 cm Time Measurements MV dec time: 0.15 sec Doppler Measurements & Calculations MV E max tank: 58.2 cm/sec Lat Peak E' Tank: 8.2 cm/sec Med Peak E' Tank: 6.5 cm/sec MV A max tank: 66.4 cm/sec E/E' lat: 7.1 E/E' med: 8.9 MV E/A: 0.88 Ao V2 max: 123.5 cm/sec LV V1 max: 117.4 cm/sec MV dec slope: 375.5 cm/sec2 Ao max P.1 mmHg LV V1 max P.5 mmHg Ao V2 mean: 92.6 cm/sec LV V1 mean P.8 mmHg Ao mean P.7 mmHg LV V1 mean: 78.8 cm/sec Ao V2 VTI: 25.4 cm LV V1 VTI: 19.1 cm AV (velocity ratio): 0.75 ISABEL(I,D): 2.4 cm2 ISABEL(V,D): 3.0 cm2 SV(LVOT): 60.8 ml PA V2 max: 90.5 cm/sec TR max tank: 250.4 cm/sec PA max PG (full): 0.93 mmHg TR max P.1 mmHg ECHO/Echo Complete W/ Contrast Interpretation Summary The estimated ejection fraction is 35-40 %. The apex is akinetic. Stage 1 diastolic dysfunction. Note made of incidental finding of hepatic cyst. Recommend ultrasound liver for further evaluation. The study was technically difficult. Contrast injection was performed. Ordering Physician: Hill Ozuna Referring Physician: MD Agus Mckeon Performed By: Ava Aguirre WILLIAM
[2024-05-16 17:10] LABS: Partial Thromboplast Time 62.1 Seconds (24.1-36.2)
[2024-05-16] MEDS: Atorvastatin Calcium 80 MG Tablet PO (21:09)
[2024-05-16] MEDS: LORazepam 0.5 MG Tablet PO (21:09)
[2024-05-17] VITALS (15 sets, daily range): BP systolic 118–157; BP diastolic 60–87; PULSE 66–88; RESP 16–18; TEMP 36.2–36.9; O2SAT 92–98; BMI 26.8
[2024-05-17] MEDS: 0.9% Normal Saline (1000mL) 1,000 ML 15 ML IV (04:55)
[2024-05-17] MEDS: 0.9% Saline Lock 10 ML Syringe IV (04:55)
[2024-05-17] MEDS: Aspirin E.C. 81 MG Tablet PO (05:00)
[2024-05-17] MEDS: Carvedilol 3.125 MG TABLET PO (05:00)
--- NOTE | 2024-05-17 05:00 | EKG12_ITS ---
Test Reason : Blood Pressure : / mmHG Vent. Rate : 073 BPM Atrial Rate : 073 BPM P-R Int : 170 ms QRS Dur : 118 ms QT Int : 442 ms P-R-T Axes : 066 059 074 degrees QTc Int : 486 ms Normal sinus rhythm Right bundle branch block T wave abnormality, consider lateral ischemia Abnormal ECG When compared with ECG of 16-MAY-2024 05:33, MANUAL COMPARISON REQUIRED, DATA IS UNCONFIRMED Confirmed by Caleb Olivarez ([id number]), material expeditor OLMAN ALBRIGHT ([id number]) on 05/17/2024 1:40:41 PM Referred By: AUDREY Confirmed By:Caleb Olivarez
[2024-05-17] MEDS: Nitroglycerin Oint 1 INCH PACKET TD ×2 (05:01→14:19)
--- NOTE | 2024-05-17 08:01 | PCM.PN.CARD ---
Subjective Subjective Patient reports that his chest discomfort totally abated by probably over 900 hours yesterday. He notes that he has had very brief episodes of chest discomfort since then that lasted less than a minute or so and resolved spontaneously. The patient is scheduled for left heart catheterization with Dr. Ozuna this morning. Objective Data Vital Signs: Vital Signs Temp Pulse Resp BP Pulse Ox O2 Del Method 98.1 F 80 16 129/76 H 96 Room Air 05/17/24 05:00 05/17/24 05:01 05/17/24 05:00 05/17/24 05:01 05/17/24 05:00 05/17/24 05:00 Oxygen Delivery Method Room Air Weight: 189 lb 12.8 oz Body Mass Index (BMI) 26.8 Intake & Output: Intake and Output for Last 24 Hours 05/15/24 05/16/24 05/17/24 23:59 23:59 23:59 Intake Total 1440.5 / 1440.5 47.80 / 47.80 Balance 1440.5 / 1440.5 47.80 / 47.80 Lab / Micro Data Attestation: I reviewed the patient's lab results. 05/16/24 07:54 05/17/24 08:03 Labs: Laboratory Results - last 24 hr 05/16/24 03:41: Hemoglobin A1c 5.8 H 05/16/24 07:54: WBC 10.4, RBC 3.92 L, Hgb 11.9 L, Hct 35.4 L, MCV 90.3, MCH 30.4, MCHC 33.6, RDW Std Deviation 43.4, RDW Coeff of Maria G 13.2, Plt Count 316, MPV 8.7, Immature Gran % (Auto) 0.300, Neut % (Auto) 76.3 H, Lymph % (Auto) 16.4 L, [place] % (Auto) 6.0, Eos % (Auto) 0.5, Baso % (Auto) 0.5, Absolute Neuts (auto) 7.9 H, Absolute Lymphs (auto) 1.70, Nucleated RBC % 0, Sodium 138, Potassium 4.6, Chloride 108 H, Carbon Dioxide 25.0, Anion Gap 5, BUN 14, Creatinine 1.03, Estim Creat Clear Calc 63.00, Est GFR (MDRD) Af Amer 90, Est GFR (MDRD) Non-Af 74, BUN/Creatinine Ratio 13.6, Glucose 136 H, Calcium 8.4 L, Phosphorus 2.4 L, Magnesium 2.0, Total Bilirubin 0.40, AST 36, ALT 21, Alkaline Phosphatase 46, Troponin I High Sens 7318 H*, Total Protein 5.7 L, Albumin 3.2, Globulin 2.5, Albumin/Globulin Ratio 1.3, Triglycerides 65, Cholesterol 175, LDL Cholesterol 124, VLDL Cholesterol 13, HDL Cholesterol 38 L, TSH 1.600 05/16/24 10:21: APTT 62.1 H 05/16/24 16:38: APTT 62.1 H 05/16/24 22:50: APTT 72.0 H Cardiology Labs/Tests 05/16/24 03:41: Hemoglobin A1c 5.8 H 05/16/24 07:54: WBC 10.4, RBC 3.92 L, Hgb 11.9 L, Hct 35.4 L, MCV 90.3, MCH 30.4, MCHC 33.6, Plt Count 316, MPV 8.7, Immature Gran % (Auto) 0.300, Neut % (Auto) 76.3 H, Lymph % (Auto) 16.4 L, [place] % (Auto) 6.0, Eos % (Auto) 0.5, Baso % (Auto) 0.5, Absolute Neuts (auto) 7.9 H, Nucleated RBC % 0, Sodium 138, Potassium 4.6, Chloride 108 H, Carbon Dioxide 25.0, Anion Gap 5, BUN 14, Creatinine 1.03, Est GFR (MDRD) Af Amer 90, Est GFR (MDRD) Non-Af 74, BUN/Creatinine Ratio 13.6, Glucose 136 H, Calcium 8.4 L, Phosphorus 2.4 L, Magnesium 2.0, Total Bilirubin 0.40, Triglycerides 65, Cholesterol 175, LDL Cholesterol 124, VLDL Cholesterol 13, HDL Cholesterol 38 L 05/16/24 10:21: APTT 62.1 H 05/16/24 16:38: APTT 62.1 H 05/16/24 22:50: APTT 72.0 H Rhythm: EKG: ECHO: Stress Test: Cardiac Cath: PCI: CT Surgery: Holter monitor: EPS: PPM: CXR: Chest CT Scan: EKG Follow-up EKG: Attestation: I personally reviewed and interpreted this EKG as follows: (EKG showed normal sinus rhythm and evolving T wave changes across the anterior precordial leads.) Physical Exam Const alert and oriented x3 HEENT normocephalic Eyes EOMs intact bilaterally Neck no JVD Chest inspection of chest normal Resp normal respiratory effort and clear to auscultation bilaterally Cardio regular rate, regular rhythm, S1 normal heart sound, S2 normal heart sound, no murmurs, no rub and no gallops GI soft to palpation Extremity no pedal edema Skin no rashes or lesions noted Neuro Neuro Narrative: Alert and oriented x 3 Psych mental status grossly normal Assessment & Plan Assessment/Plan (1) NSTEMI, initial episode of care: PLAN: Patient is scheduled for left heart catheterization this morning with Dr. Ozuna. His EKG is consistent with an evolving anterior septal ischemic event. Second set of troponins was 7318. Further recommendations be forthcoming with results of the catheterization. (2) Hypertension: QUALIFIERS: Hypertension type: primary hypertension Qualified Code(s): I10 - Essential (primary) hypertension PLAN: Blood pressures been adequately controlled here in the hospital on his current medical therapy. PLAN: Plan Cath done today revealed three-vessel coronary artery disease the patient will be transferred for surgical intervention to [facility]. Dr. Jaron Singleton has been consulted Charges/Coding Visit Charges Inpatient E&M: 01148 Subs Hosp L2
[2024-05-17 09:20] LABS: Anion Gap 3 (5-15); BUN 14 mg/dL (7-18); BUN/Creat Ratio 12.7 RATIO (10-20); Calcium,Total 8.4 mg/dL (8.5-10.1); Chloride 107 mmol/L (98-107); EST Glomerular Filtration Rate 69 mL/min (>60); Est Glom Filt Rate - Afr Amer 84 mL/min (>60); Estimated Creatinine Clearance 58.99 ml/min; Glucose 129 mg/dL (74-106); Potassium 4.5 mmol/L (3.5-5.1); Sodium Level 136 mmol/L (136-145)
--- NOTE | 2024-05-17 11:41 | CASEMGMT ---
Insurance review for hospitals In-network with [facility] insurance if transfer is recommended is as follows: [facility], [place], [facility], [place], [facility], [facility], [facility], [facility], [place], [facility] ([facility]), and . Winnie Concepcion, Discharge Planning Asst.
--- NOTE | 2024-05-17 11:59 | CL.D_ITS ---
Patient Name: MAYKEL PRAJAPATI Study Date: 05/17/2024 Performing: Hill Ozuna MD Ht: 70.5 inches 179.07 cm : 1945 Wt: 189.8 lbs 86.09 kg Age: 78 Gender: male BSA: 2.05 PROCEDURE(S) PERFORMED [id number])[facility] CLINICAL PROFILE AND INDICATIONS Indications: ACS > 24 hrs Heart Failure: None Angina Classification Anginal Classification w/in 2 Weeks: CCS IV CAD Presentations: Non-STEMI. Symptom onset Date/Time: Time Not Available CONCLUSIONS 70% Prox, 95% Mid LAD 70% Prox LCX, 90% Prox OM1, 70% Prox OM2 [employer] Prox RCA, filling via homcollaterals and also from collaterals from the left system RECOMMENDATIONS Surgery consult for coronary revascularization DESCRIPTION OF PROCEDURE The patient arrived to the procedure lab. The risks and benefits of the procedure as well as a full description of our services here and current unavailability of surgical backup were fully explained to the patient and/or their significant other prior to the catheterization. The Timeout was completed, verifying the correct patient and procedure. The patient's procedural site was prepped and draped in the usual fashion. Local anesthetic was given subcutaneously to right radial region with Lidocaine 2%. Using a modified Seldinger technique, arterial access was obtained via the right radial artery, a 6Fr sheath was inserted. Left Coronary Artery selective angiography was performed in multiple views using a 5 Fr. 4.0 [place] catheter. Right Coronary Artery selective angiography was then performed in multiple views using a 5 Fr. 4.0 [place] catheter. CORONARY ANGIOGRAPHY DOMINANCE: Right Dominant LEFT MAIN: No significant disease noted LEFT ANTERIOR DESCENDING ARTERY: LAD: Calcified 70% Proximal lesion in LAD Tubular 95% Mid lesion in LAD OM 1: Tubular 90% Proximal lesion in MARG1 Tubular 70% Proximal lesion in MARG2 OM 2: Tubular 90% Proximal lesion in MARG1 Tubular 70% Proximal lesion in MARG2 RIGHT CORONARY ARTERY: RCA: Diffuse 100% Proximal lesion in RCA COLLATERAL FLOW: Collateral flow from Conus to RCA Collateral flow from CX to RT LV-BR COMPLICATIONS No Complications PROCEDURE MEDICATIONS Fentanyl 50 mcg IV Versed 1 mg IV Oxygen: 2 L/min via nasal cannula Heparin given IA 05/17/2024 11:36:12 Verapamil 2.5mg, Ntg 200mcgs, 2000 units of Heparin given IA 05/17/2024 11:36:12 SUMMARY OF HEMODYNAMIC DATA Time AIR REST AO 127/64 (85) SA 11:38:16 ECG 11:55:06 11:55:06 Signed By Hill Ozuna MD On 05/17/2024 11:58:51 Hill Ozuna MD
--- NOTE | 2024-05-17 16:11 | PCM.DC.SUM ---
Providers Date of Admission: 05/16/24 Date of Discharge: 05/17/24 Primary Care Physician: Dr. Agus Mckeon MD Consultations 05/16/24 05:04 Consult: Cardiology Routine Consulting Provider: Hill Ozuna Reason for Consult: Chest Pain EMERGENT Consult: No MD Notified: Yes Date Notified: 05/16/24 Time Notified: 04:24 Method of Notification: Text Reason For Visit: NSTEMI Diagnosis Discharge Diagnosis (1) NSTEMI, initial episode of care: Status: Acute Code(s): I21.4 - Non-ST elevation (NSTEMI) myocardial infarction (2) Hypertension: Status: Chronic Code(s): I10 - Essential (primary) hypertension Qualifiers: Hypertension type: primary hypertension Qualified Code(s): I10 - Essential (primary) hypertension Plan Final diagnosis: #1 non-STEMI #2 triple-vessel occlusive coronary artery disease #3 essential hypertension #4 ischemic cardiomyopathy Medications at Discharge Home Medications cholecalciferol (vitamin D3) 50 mcg (2,000 unit) capsule (Vitamin D3) 50 mcg PO QODAY 05/16/24 cyanocobalamin (vitamin B-12) 1,000 mcg capsule 1,000 mcg PO DAILY 05/16/24 fluticasone propionate 50 mcg/actuation nasal spray,suspension (24 Hour Allergy Relief) 2 spray intranasal DAILY PRN allergy symptoms 05/16/24 omeprazole 20 mg capsule,delayed release 20 mg PO DAILY 05/16/24 Hospital Course Operations None Procedures 2-D Echocardiogram and Cardiac catheterization Summary of Care Provided Minutes Spent on Discharge: 31 Hospital Course: This 78-year-old white male was seen in the emergency room at [facility] with complaints of chest pain. Patient states that he woke up early in the morning on 05/16/2024 with a sensation of chest discomfort, the discomfort radiated towards his left and right shoulder as well as into his jaw bilaterally. Upon arrival to the emergency room his symptoms had almost completely resolved, he was placed on 1 inch of Nitropaste and his chest pain resolved completely. Workup in the emergency room revealed initial troponin of 99, his delta troponin was elevated at 2086, chest x-ray was unremarkable, EKG showed sinus tachycardia with premature atrial complexes and a right bundle branch block. Patient was admitted to PCU with a diagnosis of non-STEMI, he was seen in consultation by cardiology and he underwent an echocardiogram which showed an EF of 35%. Patient underwent a cardiac catheterization on 05/17/2024 which showed triple-vessel disease, arrangements were made for the patient to be transferred to [facility] in [facility] for surgical intervention. On 05/17/2024, patient was seen and examined: On examination he appeared in good health and spirits. Vital signs as documented. Skin warm and dry and without overt rashes. Neck without JVD, neck was supple, trachea midline, thyroid was normal. Lungs clear bilaterally, normal air movement was noted. Heart exam notable for regular rhythm, normal sounds and absence of murmurs, rubs or gallops. Abdomen unremarkable and without evidence of organomegaly, masses, or abdominal aortic enlargement. Bowel sounds are present, abdomen is not distended. Extremities nonedematous, no cyanosis was noted, no clubbing was noted. Neuro: Cranial nerves II through XII are grossly intact, no focal motor deficits were noted, sensation to light touch and pinprick intact, motor exam 5/5 throughout. Psych: Patient is alert and oriented x3, he does not appear anxious or depressed, he does not appear agitated. Patient was transferred to [facility] in stable condition on 05/17/2024 Weight / BMI Weight Weight: 86.092 kg Body Mass Index (BMI) 26.8 ABG / Lab / Microbiology Data 05/16/24 07:54 05/17/24 08:03 Laboratory: Laboratory Results - last 24 hr 05/16/24 16:38: APTT 62.1 H 05/16/24 22:50: APTT 72.0 H 05/17/24 08:03: Sodium 136, Potassium 4.5, Chloride 107, Carbon Dioxide 26.0, Anion Gap 3 L, BUN 14, Creatinine 1.10, Estim Creat Clear Calc 58.99, Est GFR (MDRD) Af Amer 84, Est GFR (MDRD) Non-Af 69, BUN/Creatinine Ratio 12.7, Glucose 129 H, Calcium 8.4 L Radiography Diagnostic Testing: Radiology Impression Echocardiogram 05/16/24 13:59 Interpretation Summary The estimated ejection fraction is 35-40 %. The apex is akinetic. Stage 1 diastolic dysfunction. Note made of incidental finding of hepatic cyst. Recommend ultrasound liver for further evaluation. The study was technically difficult. Contrast injection was performed. Ordering Physician: Hill Ozuna Referring Physician: MD Agus Mckeon Performed By: Ava Aguirre RDCS Meaningful Use Info Meaningful Use Meaningful Use Diagnoses (Choose all that apply): AMI AMI/Post PCI/Angioplasty Aspirin given w/in 24hrs of arrival?: Yes ASA at discharge?: Yes Antiplatelet Therapy at Discharge:: Yes Statins at discharge?: Yes Jonny/ARB at discharge?: No Reason Jonny/ARB not ordered:: Not indicated Beta Rachel at discharge?: Yes Done w/ Acute TN measure.: Yes Documented LVEF (%): 35 Ischemic Stroke Statin Dosing Therapy Reference: STATIN DOSE THERAPY REFERENCE: * Patients > 75 years receive moderate or high dose statin therapy. * Patients 75 years or YOUNGER should receive HIGH intensity statin dose unless contraindicated. You will be required to document reason for non-treatment if statin daily dose does not meet guidelines. HIGH DOSE STATIN THERAPY DAILY Atorvastatin > than or = to 40 mg Rosuvastatin > than or = to 20 mg Amlodipine + Atorvastatin > than or = to 2.5/40 mg Ezetimibe + Simvastatin 10/80 mg Simvastatin 80mg Discharge Plan Admission Admit Date/Time: 05/16/24 04:24 Attending Provider: Agus Aly Primary Care Provider: Agus Mckeon Consulting Providers: Hill Ozuna; Nathalie Escobar Discharge Orders/Prescriptions Prescriptions: No Action omeprazole 20 mg capsule,delayed release(DR/EC) 20 mg PO DAILY fluticasone propionate [24 Hour Allergy Relief] 50 mcg/actuation spray,suspension 2 spray intranasal DAILY PRN (Reason: allergy symptoms) Rx Instructions: administer into each nostril cholecalciferol (vitamin D3) [Vitamin D3] 50 mcg (2,000 unit) capsule 50 mcg PO QODAY cyanocobalamin (vitamin B-12) 1,000 mcg capsule 1,000 mcg PO DAILY Referrals / Follow Up: Agus Mckeon MD [Primary Care Provider] - Disposition Disposition (needs filled in before D/C Order can be placed): DC/Tx to Another Type of HCF Charges/Coding Visit Charges Inpatient E&M: 96575 Disch Hosp >30min
[2024-05-17 16:45] LABS: Partial Thromboplast Time 30.4 Seconds (24.1-36.2)
[2024-05-17] MEDS: HEPARIN/D5w 25,000 UNITS 25,000 UNITS/250 ML IV.SOLN. 9 UNITS CONT INF (17:41)
== END 2024-05-17 18:30 | disposition short-term general hospital (02) | DRG 282 ==
LOC: ED 04:27 → PCU 04:42
PROVIDERS: Family Medicine; Internal Medicine Cardiovascular Disease; Admitting Provider Internal Medicine; Emergency Provider Emergency Medicine; PCP Family Medicine; Visit Provider Internal Medicine
DX: I21.4 Non-ST elevation (NSTEMI) myocardial infarction (principal); I10 Essential (primary) hypertension; I45.10 Unspecified right bundle-branch block; K21.9 Gastro-esophageal reflux disease without esophagitis; J30.2 Other seasonal allergic rhinitis; I25.10 Atherosclerotic heart disease of native coronary artery without angina pectoris; I25.5 Ischemic cardiomyopathy; Z66 Do not resuscitate; R73.9 Hyperglycemia, unspecified; Z79.82 Long term (current) use of aspirin
CPT/HCPCS: 36415; 71046; 80048; 80053; 80061; 83036; 83735; 84100; 84443; 84484; 85025; 85610; 85730; 93005; 93306; 93454; 94668; 97802; 99152; 99153; 99284; J7030; Q9957; Q9967; A4216; C1769; C1894; C8929

== ENCOUNTER → 2024-07-29 | Outpatient (CLI) | payer MEDICARE, OTHER, SELFPAY | END | disposition home or self-care (01) | LOC: CVS 10:29 | PROVIDERS: PCP Family Medicine; Referring Provider Internal Medicine Cardiovascular Disease; Visit Provider Internal Medicine Cardiovascular Disease | DX: R57.0 Cardiogenic shock (principal) | CPT/HCPCS: 93308; Q9957; A4216; C8924 ==

== ENCOUNTER → 2024-08-13 | Outpatient (CLI) | payer MEDICARE, OTHER, SELFPAY ==
--- NOTE | 2024-08-13 13:46 | CR.HP_ITS ---
CR - History & Physical General Arrival date:: 08/13/24 Arrival time:: 13:47 Date of Referral:: 08/09/24 Date of CR Evaluation:: 08/13/24 Referring Physician: Dr. Olivarez Primary Diagnosis: CABG History of Present Cardiac Event Onset Date Coronary Artery Bypass Graft:: Yes (onset 05/20/24 ) Medications Ambulatory Orders ?Medication ?Instructions ?Recorded fluticasone propionate 50 2 spray intranasal DAILY PRN 05/16/24 mcg/actuation nasal allergy symptoms spray,suspension (24 Hour Allergy Relief) aspirin 81 mg tablet,delayed 81 mg PO QDAY 06/25/24 release (Adult Aspirin Regimen) clopidogrel 75 mg tablet 75 mg PO QDAY 06/25/24 furosemide 40 mg tablet 40 mg PO QDAY 06/25/24 gabapentin 100 mg capsule 100 mg PO QHS PRN 06/25/24 amiodarone 200 mg tablet 200 mg PO QDAY #30 tabs 07/08/24 amlodipine 2.5 mg tablet 2.5 mg PO QDAY #30 tabs 07/08/24 carvedilol 6.25 mg tablet 6.25 mg PO BID #60 tabs 07/08/24 pantoprazole 40 mg tablet,delayed 40 mg PO QDAY #30 tabs 07/08/24 release rosuvastatin 10 mg tablet 10 mg PO QDAY #30 tabs 07/08/24 Allergies Allergies amoxicillin (From Augmentin) Allergy (Severe, Verified 05/16/24 02:06) Abd cramps/diarrhea bloody diarrhea clavulanic acid (From Augmentin) Allergy (Severe, Verified 05/16/24 02:06) Abd cramps/diarrhea bloody diarrhea etodolac Allergy (Severe, Verified 05/16/24 02:06) liver problems per pt fluoxetine (From Prozac) Allergy (Intermediate, Verified 05/16/24 02:06) Hives Seasonal Allergies: Uncoded Allergy (Intermediate, Verified 05/16/24 02:06) sneezing Sleep Disorder Evaluation Hx of Sleep Apnea: No Do you snore loudly (louder than talking or can be heard through closed doors)?: No Do you often feel tired/ fatigued/ sleepy during daytime?: No Has anyone observed you stop breathing during sleep?: No History of Hypertension (for STOP score): Yes STOP Results: Negative Advanced Directives Advanced Directives 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 Caleb Olivarez MD) History of cardioversion Z92.89 05/23/2024, 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 Non-cancerous growth of soft tissue D21.9 removed on back Right shoulder tendonitis M77.8 surgically repaired GERD (gastroesophageal reflux disease) K21.9 Right bundle branch block I45.10 Past Surgical History Past Surgical History (Updated 08/09/24 @ 09:19 by Winnie Treviño) S/P dialysis catheter insertion Z95.828, Z99.2 Hx of CABG Z95.1 05/20/24 [facility] In situ ZAMORA-LAD, in situ BREANNE w/rsvg extension to first and terminal obtuse marginal and RPDA History of tonsillectomy and adenoidectomy Z90.89 Family History Summary Family History Other Heart disease Hypertension Social History Smoking History Smoking Status: Never smoker Alcohol Use Alcohol Usage: No Substance Abuse Hx Substance Use: No Occupation Occupation (List type of work in comments):: Employed Hours worked per day:: 1 (8-10 a week) Hobbies, Recreation, Social Activities 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) Recreational Activities: I am able to engage in all my recreational activities Social Environment Status Marital Status: Current Living Arrangements Living Environment:: Spouse Children How many children do you have?: 2 Do any of your children live nearby?: Yes Safety Do you feel safe in your surroundings?: Yes Assistance Do you need any assistance at home?: no Review of Systems Review of Systems Hints Review of Present Symptoms: Reports Dizziness/Lightheadedness, Fatigue, Appetite - Normal, Appetite - Special Diet and Sleep - Normal; Denies Shortness of Breath at Rest, Shortness of Breath with Exertion, PVD, Operative Discomfort, Angina, Wound Healing, Heart Arrhythmia/Irregularities or Sexual Changes Pain Is Patient Pain Free?: Yes Risk Factor Assessment Chief Complaint Chief Complaint: CABG Vital Signs Pulse Ox: 98 Blood Pressure: 140/64 Pulse Pulse Rate: 61 Pulse Rhythm: Regular Hypertension How long have you been treated?: April Blood Pressure Sitting - Right Arm: 140/64 Obesity Height: 5 ft 10.5 in Weight:: 187 lb Weight in Pounds: 187.0 lbs Body Mass Index (BMI): 26.4 Nutritional Referral for Obesity: No Physical Inactivity Physical Inactivity: Reg Exercise 30 min/day Risk Stratification Risk Guidelines: Lowest Risk: Risk Factor for Smoking, Moderate Risk: Risk Factor for Diabetes, Risk Factor for Obesity, Risk Factor for Sedentary Lifestyle and Risk Factor for Depression and Highest Risk: Risk Factor for Dyslipidemia and Risk Factor for Hypertension For Smoking Smoking Risk Guidelines For Dyslipidemia Dyslipidemia Risk Guidelines For Diabetes Mellitus Diabetes Risk Guidelines For Obesity/Overweight Obesity/Overweight Risk Guidelines For Hypertension Hypertension Risk Guidelines For Sedentary Lifestyle Sedentary Lifestyle Risk Guidelines For Depression Depression Risk Guidelines Family History Family History Other Heart disease Hypertension Motivation Motivation to Participate On a scale of 1 to 10, how prepared are you to commit to attending program?: 9 What do you see as barriers to successfully being able to complete the program?: nothing What do you see as the benefits of succesfully completing the program? In other words, what do you hope to get out of participating in the program?: strength, energy, stamina Are there issues you are dealing with that will interfere with completing the program?: no Do you have a spouse or signficant other, family or friends who will help support you to complete the program?: yes
--- NOTE | 2024-08-13 13:54 | CR.ITP_ITS ---
Diagnosis General Information Admitting Diagnosis: CABG Personal Learning Style:: Audio/Visual Barriers to Learning: No Barriers Stage of change r/t lifestyle modifications:: Contemplation Gave educational material for:: Treating Heart Disease, How The Heart Works, What it means to have Heart Disease, How Coronary Artery Disease is Diagnosed, Heart Procedures, What Heart Medications Do, Risk Factors & Modifications, Living an Active Life, Nutrition, Emotions & Heart Disease, Stress Management & Relaxation and Sleep Disorders & Heart Disease Education/Goals Cardiac Rehabilitation Goals Personal Goals: Initial Assessment: Improve energy level, Get back to work, or to resume activities faster, Improve knowledge of cardiac disease, Improve muscle strength and endurance, Improve diet and eating habits (eat healthier) and Control risk factors (learn risk factor modification) Scale for measuring improvement of personal goals Diagnosis & Disease Process Outcomes/Goals: Pt IDs own risk factors & lifestyle modifications by Session 10, Verbalizes symptoms of angina & response by session 3., Pt independently manages and Other Additional Outcomes/Goals: Plan/Interventions: Assist Pt to ID & engage in lifestyle modification to reduce CVD risk, Instruct on individual risk factors, Review symptoms of angina & emergency actions, Review secondary diagnosis & identify educational needs. and Other see comment 30 day Reassessments:: Not Met 30 day Reassessments:: Not Met 30 day Reassessments:: Not Met 30 day Reassessments:: Not Met Safety Referral to Physical Therapy: No Referral to [facility] Case Management: No Fall Risk Assessed:: Yes Assistive Devices:: None Exercise - Initial Assessment Visit Date of Eval: 08/13/24 (initial eval ) Mets: Pre-: >3 METS for 30 minutes by discharge, >5 METS for 30 minutes by discharge, >7 METS for 30 minutes by discharge and Unable to meet goal due to: (see comment below) Physician Prescribed Exercise Modalities: Treadmill, Schwinn Airdyne AD-7, SciFit Stepper, SciFit Pro-II Ergometer and SciFit Lateral Washing Machine Repairer Frequency: 3x/week for 12 weeks [36 sessions] Intensity: 60-80% of age predicted maximum heart rate reserve Duration: 30 - 45 minutes Current METSs:: 3 Target Heart Rate:: 86-107 Resting Blood Pressure: 140/64 EKG Type: SR RBBB nonspecific Twave abnormality Outcomes & Goals Goals:: Verbalizes understanding of THR, RPE & goal METS by session 6, Documents in home exercise log/reports 30 min aerobic 5 day/wk by DC, Demonstrates accurate pulse taking by DC and Other additional outcome/goals: see below Intervention & Plan Exercise Program Goals: Instruct on personal THR & RPE, Instruct on MET level & personal MET goal, Show patient to take own pulse /validate performance until accurate, Instruct on home exercise and Other additional plan/int Physical Activity Home Exercise Physical Activity - Home Exercise: Safe Exercise, Warm-up, Self-monitoring, Cool-Down, Home Exercise > 30 min Daily and Sitting Time <3 hours/daily Outcomes & Goals Outcomes/Goals: Demonstrates correct Warm-up/exercise Cool-Down (S3) if = 2.5 METs, Verbalizes symptoms of exercise intolerance by Session 3 (S3), Demonstrate safe equipment use (S3) & follows exercise prescrition (6) and Other: See below Intervention & Plan Plan/Intervention: Instruct warm-up & cool-down if exercising at > 2 METs, Instruct on symptoms of exercise intolerance & actions to take, Instruct & monitor on saf, Assess intial functional capacity & safety risk and Other See below Nutrition - Initial Assessment Program Goals Nutrition Program Goals Patient has diagnosis of Hyperlipidemia (ICD E78)?: Yes Visit Date of Eval: 08/13/24 (initial eval) Cholesterol/Lipids (Other Core Measures) Determine presence & major risk factors that modify LDL goal: Hypertension or hypertensive medication, Low HDL cholesterol <40 mg/dL*, Family history of premature CHD in Male < 55 years: female <65 yearsFa and Age men > 45 years; women >/= 55 years Outcomes/Goals: Pt IDs own risk factors & lifestyle modifications by Session 10, Verbalizes symptoms of angina & response by session 3., Pt independently manages and Other Additional Outcomes/Goals: Intervention/Plan: Advocate for lipid panel cholesterol medication if applicable, Instruct on personal lipid levels & lipid goals/NCEP guidelines, Instruct on cholesterol and Other additional plan/int Referral to dietitian:: No Diabetes (Other Core Measures) Diabetes Type: Not Applicable Weight Mgt (Other Care) Height: 5 ft 10.5 in Weight:: 178 lb BMI: 25.2 Diagnosis Overweight/Obesity BMI> 30% ICD-10 E66: No Diagnosis High BMI/Morbid Obesity BMI> 35% ICD-10 Z68: No Outcomes/Goals: Pt sets, maintains & shows weight loss goal & trend during rehab and Other additional outcomes/goals Intervention/Plan: Instruct on ideal BMI & set weight loss goal w/patient, Assist pt to ID & incorporate diet changes for weight loss by S9, Refer to Structured Weight Loss program as appropriate, Encourage goal of using 250-300 dcal per session for weight loss and Other additional plan/interventions Healthy Eating Habits Will attend diet classes:: Yes Outcomes/Goals:: Consume diet rich in vegs,fruits,whole grain/high fiber,fish,lean meat, Limit sat/trans fats,cholesterol & added salts & sugars and Other additional outcome/goals: Intervention/Plan:: Assess current eating habits and Other Additional plan/interventions Education Gave educational materials for:: Signs & symptoms of hypoglycemia, Signs & symptoms of hyperglycemia, Relate diabetes to coronary artery disease and Healthy eating Core - Initial Assessment Visit Date of Eval: 08/13/24 (initial eval ) Medication Compliance Preventative Medication(s):: Aspirin, Statin/lipid and Beta jose H/O mental health issues: depression, anxiety, or addiction?: No Doesn?t believe in the benefits of treatment?: No Believes medications are unnecessary or harmful?: No Has a concern about medication side effects?: No Expresses concern over the cost of medications?: No Outcomes/Goals: Verbalizes medications,desired effect & common side effects @ DC, Pt self-reports following medication regimen, Keeps card in wallet w/medications listed by DC and Other additional outcome/goals: Interventions/plans: Instruct on medication effects & side effects, Review medication list w/patient every two weeks, Instruct importance of taking meds as ordered & assist problem solving and Other additional Tobacco Use Tobacco Use: Non-smoker Hypertension Hypertension Diagnosis:: Hypertension ICD-10 I10 Resting Blood Pressure:: 140/64 [place] [employer] Hypertension Guidelines Outcomes/Goals: Able to verbalize/achieve optimal blood pressure <130/80, Incorporates diet changes & exercise for blood pressure control by DC and Other additional outcomes/goals Interventions/plan: Instruct on optimal blood pressure, hypertension & medications, Instruct on effects of sodium, alcohol, stress, exercise &hypertension and Other additional plan/interventions Tobacco Cessation Referral Smoking Cessation Referral:: No Individual Education/Counseling:: No Education Schedule Given:: Yes Psychosocial - Initial Assess VIsit Date of Eval: 08/13/24 (initial eval ) History of previous Mental disease:: No Target Goals Target Goals Psychosocial Test Tool Used:: [employer] QOL Cardiac and PHQ-9 Questionnaire phq-9 Severity Referral to Behavioral Health PS - Interventions: Yes: Attend Stress Management Classes Outcomes/Goals: See list Psychosocial Outcomes/Goals:: ID's personal stressors & 2 strategies to manage stress by discharge and Other Additional outcome/goals: Intervention/Plan: See List Interventions/Plan:: Assess stressors,coping strategies & signs of derpression on admission, Instruct/assist pt to develop coping & personal stress Mgt strategies, Refer to Behavioral Health if appropriate, Refer to Physician if appropriate, Instruct patient to recognize signs & symptoms of depression, Instruct patient to recog and Other additional plan/intervention Patient Health Questionnaire PHQ-9 Screening Initial Assessment: 1. Little interest or pleasure in doing things: Not at all 2. Feeling down, depressed, or hopeless: Not at all 3. Trouble falling or staying asleep, or sleeping too much: Several days 4. Feeling tired or having little energy: Nearly every day 5. Poor appetite or overeating: Not at all 6. Feeling bad about yourself -- or that you are a failure or have let yourself or your family down: Not at all 7. Trouble concentrating on things, such as reading the newspaper or watching television: Not at all 8. Moving or speaking so slowly that other people could have noticed. Or the opposite - being so fidgety or restless that you have been moving around a lot more than usual: Not at all 9. Thoughts that you would be better off , or of hurting yourself in some way: Not at all How difficult have these problems made it for you to do your work, take care of things at home, or get along with other people?: Somewhat difficult Total Score: 4 STEPHANIE-Q SV Test Statements CAD is a disease of the arteries in the heart: False Examples of risk factors for heart disease: True Angina is chest pain or discomfort: True The benefits of resistance training include: True Eating more meat and dairy products: False Anti-platelet medications such as aspirin are important: True The only effective way to manage stress: False An exercise warm-up slowly increases heart rate: False Prepared, processed foods usually have high sodium: True Depression is common after a heart attack: True The statin medications lower cholesterol: True To control blood pressure, lower the amount of sodium: True If someone gets chest discomfort during walking: False Transfats are partially hydrogenated vegetable oils: True Sleep apnea that is not treated increases the risk: False To control cholesterol, one should become a vegetarian: False Someone knows if he/she is exercising at the right level: True Diabetes cannot be prevented with exercise & health eating: False Stress is a large risk for heart attack: True A diet that can help lower blood pressure is rich in: True Total Score Total Correct Responses: 19 Self-Efficacy 6-Item Scale Initial Assessment: We would like to know how confident you are in doing certain activities. Please select your confidence level for: Fatigue Select Number: 3 Physical Discomfort or Pain Select Number: 3 Emotional Distress Select Number: 8 Other Symptoms or Health Problems Select Number: 9 Different Tasks and Activities Select Number: 10 Medication Select Number: 10 Total Score:: 7 Nutrition Survey Nutrition Survey Instructions Scoring Instructions Nutrition Survey Initial: Have you lost >10 lbs over the past 2 months without trying?: No Are you following a special diet at home for diabetes, low fat, or low salt?: Yes Are you interested in meeting with a dietitian for help understanding your diet?: No Do you eat less than 3 meals a day?: No Do you eat fatty meats (rea, sausage, ribs, etc), fried foods, desserts, large amounts of salad dressings, margarine, butter, or cheese most days?: No Do you have food allergies? [Enter types in comment field]: Yes Do you eat in restaurants more than 3 times a week?: No Do you season food with salt, seasoning salt, or garlic salt?: No Do you used canned, boxed, frozen meals, or soups, seasoning packets?: Yes Total Score:: 3 Exercise - 30-day Assessment Physician Prescribed Exercise Modalities: Treadmill, Schwinn Airdyne AD-7, SciFit Stepper, SciFit Pro-II Ergometer and SciFit Lateral [place] Exercise - 60-day Assessment Physician Prescribed Exercise Modalities: Treadmill, Schwinn Airdyne AD-7, SciFit Stepper, SciFit Pro-II Ergometer and SciFit Lateral [place] Exercise - 90-day Assessment Physician Prescribed Exercise Modalities: Treadmill, Schwinn Airdyne AD-7, SciFit Stepper, SciFit Pro-II Ergometer and SciFit Lateral [place] Exercise - Final/Discharge Physician Prescribed Exercise Modalities: Treadmill, Schwinn Airdyne AD-7, SciFit Stepper, SciFit Pro-II Ergometer and SciFit Lateral [place] Frequency: 3x/week for 12 weeks [36 sessions] Intensity: 60-80% of age predicted maximum heart rate reserve Current METSs:: 3 Target Heart Rate:: 86-107 Nutrition - 30-Day Assessment Weight Mgt (Other Care) Height: 5 ft 10.5 in Weight:: 178 lb BMI: 25.2 Nutrition - 60-Day Assessment Weight Mgt (Other Care) Height: 5 ft 10.5 in Weight:: 178 lb BMI: 25.2 Core - Final Assessment Hypertension Resting Blood Pressure:: 140/64 [place] [employer] Hypertension Guidelines Core - 60-Day Assessment Hypertension Resting Blood Pressure:: 140/64 [place] [employer] Hypertension Guidelines Psychosocial - 30-Day Assess Target Goals Target Goals Referral to Behavioral Health PS - Interventions: Yes: Attend Stress Management Classes Psychosocial - 60-Day Assess Target Goals Target Goals Referral to Behavioral Health PS - Interventions: Yes: Attend Stress Management Classes Psychosocial - 90-Day Assess Target Goals Target Goals Referral to Behavioral Health PS - Interventions: Yes: Attend Stress Management Classes Psychosocial - Final Assessmen Target Goals Target Goals Referral to Behavioral Health PS - Interventions: Yes: Attend Stress Management Classes Nutrition - 90-Day Assessment Weight Mgt (Other Care) Height: 5 ft 10.5 in Weight:: 178 lb BMI: 25.2 Nutrition - Final Assessment Program Goals Patient has diagnosis of Hyperlipidemia (ICD E78)?: Yes Weight Mgt (Other Care) Height: 5 ft 10.5 in Weight:: 178 lb BMI: 25.2
[2024-08-13 14:09] VITALS: BMI 26.4
[2024-08-13 14:19] VITALS: BP 140/64; PULSE 61; O2SAT 98
[2024-08-13 14:40] VITALS: BMI 25.2
[2024-08-13 14:50] VITALS: BP 140/64
== END | disposition home or self-care (01) ==
PROVIDERS: PCP Family Medicine; Referring Provider Internal Medicine Cardiovascular Disease; Visit Provider Internal Medicine Cardiovascular Disease
DX: I25.10 Atherosclerotic heart disease of native coronary artery without angina pectoris (principal); Z95.1 Presence of aortocoronary bypass graft

== ENCOUNTER 2024-08-18 10:15 | Outpatient (RCR) | payer MEDICARE, OTHER, SELFPAY ==
[2024-08-13 14:40] VITALS: BMI 25.2
== END 2024-08-21 23:59 ==
LOC: CR 10:15
PROVIDERS: PCP Family Medicine; Referring Provider Internal Medicine Cardiovascular Disease; Visit Provider Internal Medicine Cardiovascular Disease
DX: Z95.1 Presence of aortocoronary bypass graft (principal); I25.10 Atherosclerotic heart disease of native coronary artery without angina pectoris
CPT/HCPCS: 93798

== ENCOUNTER → 2024-08-18 | Outpatient (CLI) | payer MEDICARE, OTHER, SELFPAY ==
[2024-08-13 14:40] VITALS: BMI 25.2
[2024-08-18 12:58] LABS: AST(SGOT) 14 U/L (15-37); Alanine Aminotransfer ALT/SGPT 17 U/L (16-61); Albumin, Serum 3.4 g/dL (3.2-5.0); Alkaline Phosphatase 49 U/L (45-117); Cholesterol 125 mg/dL (200); Globulin 3.2 g/dL (2.2-4.2); High Density Lipoprotein 41 mg/dL; Protein, Total 6.6 g/dL (6.4-8.2); Triglycerides 104 mg/dL; Very Low Density Lipoprotein 21 mg/dL (5-40)
== END | disposition home or self-care (01) ==
LOC: LAB 11:17
PROVIDERS: PCP Family Medicine; Referring Provider Internal Medicine Cardiovascular Disease; Visit Provider Internal Medicine Cardiovascular Disease
DX: I25.10 Atherosclerotic heart disease of native coronary artery without angina pectoris (principal); R57.0 Cardiogenic shock
CPT/HCPCS: 36415; 80061; 80076

== ENCOUNTER 2024-09-20 10:15 | Outpatient (RCR) | payer MEDICARE, OTHER, SELFPAY ==
[2024-08-13 14:40] VITALS: BMI 25.2
--- NOTE | 2024-09-10 11:31 | CR.ITP_ITS ---
Exercise - Initial Assessment Visit Session #:: 9 Physician Prescribed Exercise Modalities: SciFit Stepper, SciFit Pro-II Ergometer and SciFit Lateral Person Investigator Nutrition - Initial Assessment Weight Mgt (Other Care) Height: 5 ft 10 in Weight:: 175 lb BMI: 25.1 Psychosocial - Initial Assess Target Goals Target Goals Referral to Behavioral Health PS - Interventions: Yes: Attend Stress Management Classes Patient Health Questionnaire PHQ-9 Screening 30-Day Re-eval Assessment: 1. Little interest or pleasure in doing things: Not at all 2. Feeling down, depressed, or hopeless: Not at all 3. Trouble falling or staying asleep, or sleeping too much: Several days 4. Feeling tired or having little energy: Nearly every day 5. Poor appetite or overeating: Not at all 6. Feeling bad about yourself -- or that you are a failure or have let yourself or your family down: Not at all 7. Trouble concentrating on things, such as reading the newspaper or watching television: Not at all 8. Moving or speaking so slowly that other people could have noticed. Or the opposite - being so fidgety or restless that you have been moving around a lot more than usual: Not at all 9. Thoughts that you would be better off , or of hurting yourself in some way: Not at all How difficult have these problems made it for you to do your work, take care of things at home, or get along with other people?: Somewhat difficult Total Score: 4 Self-Efficacy 6-Item Scale 30-Day Re-eval Assessment: We would like to know how confident you are in doing certain activities. Please select your confidence level for: Fatigue Select Number: 3 Physical Discomfort or Pain Select Number: 3 Emotional Distress Select Number: 8 Other Symptoms or Health Problems Select Number: 9 Different Tasks and Activities Select Number: 10 Medication Select Number: 10 Total Score:: 7 Nutrition Survey Nutrition Survey Instructions Scoring Instructions Exercise - 30-day Assessment Visit Date of Eval: 09/10/24 Session #:: 9 Physician Prescribed Exercise Modalities: SciFit Stepper, SciFit Pro-II Ergometer and SciFit Lateral Person Investigator Frequency: 3x/week for 12 weeks [36 sessions] Intensity: 60-80% of age predicted maximum heart rate reserve Duration: 30 - 45 minutes Current METSs:: 3.3 Target Heart Rate:: 86-107 Current RPE:: 13-14 Maximum Excercise HR:: 84 Resting Blood Pressure: 128/56 Maximum Exercise Blood Pressure: 142/40 EKG Type: NSR with rare PAC's Outcomes & Goals Goals:: Verbalizes understanding of THR, RPE & goal METS by session 6, Documents in home exercise log/reports 30 min aerobic 5 day/wk by DC, Demonstrates accurate pulse taking by DC and Other additional outcome/goals: see below Intervention & Plan Exercise Program Goals: Instruct on personal THR & RPE, Instruct on MET level & personal MET goal, Show patient to take own pulse /validate performance until accurate, Instruct on home exercise and Other additional plan/int Physical Activity Home Exercise Physical Activity - Home Exercise: Safe Exercise, Warm-up, Self-monitoring, Cool-Down, Home Exercise > 30 min Daily and Sitting Time <3 hours/daily Outcomes & Goals Outcomes/Goals: Demonstrates correct Warm-up/exercise Cool-Down (S3) if = 2.5 METs, Verbalizes symptoms of exercise intolerance by Session 3 (S3), Demonstrate safe equipment use (S3) & follows exercise prescrition (6) and Other: See below Intervention & Plan Plan/Intervention: Instruct warm-up & cool-down if exercising at > 2 METs, Instruct on symptoms of exercise intolerance & actions to take, Instruct & monitor on saf, Assess intial functional capacity & safety risk and Other See below 30-day Reassessments 30 day Reassessments:: Progressing Reassessment Notes & Comments:: RPE explained to pt. Pt demonstrates understanding. Exercise - 60-day Assessment Physician Prescribed Exercise Modalities: SciFit Stepper, SciFit Pro-II Ergometer and SciFit Lateral Person Investigator Exercise - 90-day Assessment Physician Prescribed Exercise Modalities: SciFit Stepper, SciFit Pro-II Ergometer and SciFit Lateral [place] Exercise - Final/Discharge Physician Prescribed Exercise Modalities: SciFit Stepper, SciFit Pro-II Ergometer and SciFit Lateral [place] Nutrition - 30-Day Assessment Program Goals Nutrition Program Goals Patient has diagnosis of Hyperlipidemia (ICD E78)?: Yes Visit Date of Eval: 09/10/24 Session #:: 9 Cholesterol/Lipids (Other Core Measures) Determine presence & major risk factors that modify LDL goal: Hypertension or hypertensive medication, Low HDL cholesterol <40 mg/dL*, Family history of premature CHD in Male < 55 years: female <65 yearsFa and Age men > 45 years; women >/= 55 years Outcomes/Goals: Pt IDs own risk factors & lifestyle modifications by Session 10, Verbalizes symptoms of angina & response by session 3., Pt independently manages and Other Additional Outcomes/Goals: Intervention/Plan: Advocate for lipid panel cholesterol medication if applicable, Instruct on personal lipid levels & lipid goals/NCEP guidelines, Instruct on cholesterol and Other additional plan/int Diabetes (Other Core Measures) Diabetes Type: Not Applicable Weight Mgt (Other Care) Height: 5 ft 10 in Weight:: 175 lb BMI: 25.1 Diagnosis Overweight/Obesity BMI> 30% ICD-10 E66: No Diagnosis High BMI/Morbid Obesity BMI> 35% ICD-10 Z68: No Outcomes/Goals: Pt sets, maintains & shows weight loss goal & trend during rehab and Other additional outcomes/goals Intervention/Plan: Instruct on ideal BMI & set weight loss goal w/patient, Assist pt to ID & incorporate diet changes for weight loss by S9, Refer to Structured Weight Loss program as appropriate, Encourage goal of using 250- 300dcal per session for weight loss and Other additional plan/interventions Healthy Eating Habits Will attend diet classes:: Yes Outcomes/Goals:: Consume diet rich in vegs,fruits,whole grain/high fiber,fish,lean meat, Limit sat/trans fats,cholesterol & added salts & sugars and Other additional outcome/goals: Intervention/Plan:: Assess current eating habits and Other Additional plan/interventions 30-day Reassessments:: Progressing Reassessment Notes & Comments:: Pt is scheduled to attend nutrition class. Pt is currently at a healthy weight. Pt understands the importance of a heart healthy low sodium diet. Education Gave educational materials for:: Signs & symptoms of hypoglycemia, Signs & symptoms of hyperglycemia, Relate diabetes to coronary artery disease and Healthy eating Nutrition - 60-Day Assessment Weight Mgt (Other Care) Height: 5 ft 10 in Weight:: 175 lb BMI: 25.1 Core - 30-Day Assessment Visit Date of Eval: 09/10/24 Session #:: 9 Medication Compliance Preventative Medication(s):: Aspirin, Statin/lipid and Beta jose H/O mental health issues: depression, anxiety, or addiction?: No Doesn?t believe in the benefits of treatment?: No Believes medications are unnecessary or harmful?: No Has a concern about medication side effects?: No Expresses concern over the cost of medications?: No Outcomes/Goals: Verbalizes medications,desired effect & common side effects @ DC, Pt self-reports following medication regimen, Keeps card in wallet w/medications listed by DC and Other additional outcome/goals: Interventions/plans: Instruct on medication effects & side effects, Review medication list w/patient every two weeks, Instruct importance of taking meds as ordered & assist problem solving and Other additional Tobacco Use Tobacco Use: Non-smoker Hypertension Hypertension Diagnosis:: Hypertension ICD-10 I10 Resting Blood Pressure:: 128/56 [place] [employer] Hypertension Guidelines Peak Exercise Blood Pressure:: 142/40 Outcomes/Goals: Able to verbalize/achieve optimal blood pressure <130/80, Incorporates diet changes & exercise for blood pressure control by DC and Other additional outcomes/goals Interventions/plan: Instruct on optimal blood pressure, hypertension & medications, Instruct on effects of sodium, alcohol, stress, exercise &hypertension and Other additional plan/interventions 30 day Reassessments:: Progressing Reassessment Notes & Comments:: Pt's BP's are slightly elevated on most days. Will stress low sodium diet. Will report BP's to pt's physician if necessary. Tobacco Cessation Referral Smoking Cessation Referral:: No Individual Education/Counseling:: No Education Schedule Given:: Yes Psychosocial - 30-Day Assess VIsit Date of Eval: 09/10/24 Session #:: 8 History of previous Mental disease:: No Target Goals Target Goals Psychosocial Test Tool Used:: [employer] QOL Cardiac and PHQ-9 Questionnaire phq-9 Severity Referral to Behavioral Health PS - Interventions: Yes: Attend Stress Management Classes Outcomes/Goals: See list Psychosocial Outcomes/Goals:: ID's personal stressors & 2 strategies to manage stress by discharge and Other Additional outcome/goals: Intervention/Plan: See List Interventions/Plan:: Assess stressors,coping strategies & signs of derpression on admission, Instruct/assist pt to develop coping & personal stress Mgt strategies, Refer to Behavioral Health if appropriate, Refer to Physician if appropriate, Instruct patient to recognize signs & symptoms of depression, Instruct patient to recog and Other additional plan/intervention 30-day Reassessments: 30 day Reassessments:: Met Reassessment Notes & Comments:: Pt denies any psychosocial issues at this time. Psychosocial - 60-Day Assess Target Goals Target Goals Referral to Behavioral Health PS - Interventions: Yes: Attend Stress Management Classes Outcomes/Goals: See list Psychosocial Outcomes/Goals:: ID's personal stressors & 2 strategies to manage stress by discharge and Other Additional outcome/goals: Psychosocial - 90-Day Assess Target Goals Target Goals Referral to Behavioral Health PS - Interventions: Yes: Attend Stress Management Classes Psychosocial - Final Assessmen Target Goals Target Goals Referral to Behavioral Health PS - Interventions: Yes: Attend Stress Management Classes Nutrition - 90-Day Assessment Weight Mgt (Other Care) Height: 5 ft 10 in Weight:: 175 lb BMI: 25.1 Nutrition - Final Assessment Weight Mgt (Other Care) Height: 5 ft 10 in Weight:: 175 lb BMI: 25.1
[2024-09-10 11:44] VITALS: BP 128/56; BMI 25.1
== END 2024-09-21 23:59 ==
LOC: CR 10:15
PROVIDERS: PCP Family Medicine; Referring Provider Internal Medicine Cardiovascular Disease; Visit Provider Internal Medicine Cardiovascular Disease
DX: Z95.1 Presence of aortocoronary bypass graft (principal); I25.10 Atherosclerotic heart disease of native coronary artery without angina pectoris
CPT/HCPCS: 93798

== ENCOUNTER → 2024-10-12 | Outpatient (CLI) | payer MEDICARE, OTHER, SELFPAY ==
[2024-09-10 11:44] VITALS: BMI 25.1
[2024-10-12 11:42] LABS: Protein, Urine (Random) < 6.0 mg/dL (<11.9)
[2024-10-12 12:09] LABS: Anion Gap 6 (5-15); BUN 20 mg/dL (7-18); BUN/Creat Ratio 12.7 RATIO (10-20); Calcium,Total 9.7 mg/dL (8.5-10.1); Chloride 102 mmol/L (98-107); Creatinine, Serum 1.57 mg/dL (0.70-1.30); EST Glomerular Filtration Rate 46 mL/min (>60); Est Glom Filt Rate - Afr Amer 55 mL/min (>60); Glucose 99 mg/dL (74-106); Sodium Level 134 mmol/L (136-145)
== END | disposition home or self-care (01) ==
LOC: LAB 10:44
PROVIDERS: PCP Family Medicine; Referring Provider Internal Medicine Nephrology; Visit Provider Internal Medicine Nephrology
DX: N17.9 Acute kidney failure, unspecified (principal)
CPT/HCPCS: 36415; 80048; 82570; 84156

== ENCOUNTER 2024-10-22 10:15 | Outpatient (RCR) | payer MEDICARE, OTHER, SELFPAY ==
[2024-09-10 11:44] VITALS: BMI 25.1
[2024-09-22 00:42] VITALS: BP 128/56
--- NOTE | 2024-10-13 09:43 | PCM.CR.ITP ---
Exercise - Initial Assessment Physician Prescribed Exercise Modalities: SciFit Stepper, SciFit Pro-II Ergometer and SciFit Lateral Smt [employer] Nutrition - Initial Assessment Weight Mgt (Other Care) Height: 5 ft 10 in Weight:: 174 lb 8 oz BMI: 25.0 Core - Initial Assessment Hypertension Resting Blood Pressure:: 150/54 [place] [employer] Hypertension Guidelines Psychosocial - Initial Assess Target Goals Target Goals Referral to Behavioral Health PS - Interventions: Yes: Attend Stress Management Classes Patient Health Questionnaire PHQ-9 Screening 60-Day Re-eval Assessment: 1. Little interest or pleasure in doing things: Not at all 2. Feeling down, depressed, or hopeless: Not at all 3. Trouble falling or staying asleep, or sleeping too much: Several days 4. Feeling tired or having little energy: Nearly every day 5. Poor appetite or overeating: Not at all 6. Feeling bad about yourself -- or that you are a failure or have let yourself or your family down: Not at all 7. Trouble concentrating on things, such as reading the newspaper or watching television: Not at all 8. Moving or speaking so slowly that other people could have noticed. Or the opposite - being so fidgety or restless that you have been moving around a lot more than usual: Not at all 9. Thoughts that you would be better off , or of hurting yourself in some way: Not at all How difficult have these problems made it for you to do your work, take care of things at home, or get along with other people?: Somewhat difficult Total Score: 4 Self-Efficacy 6-Item Scale 60-Day Re-eval Assessment: We would like to know how confident you are in doing certain activities. Please select your confidence level for: Fatigue Select Number: 3 Physical Discomfort or Pain Select Number: 3 Emotional Distress Select Number: 8 Other Symptoms or Health Problems Select Number: 9 Different Tasks and Activities Select Number: 10 Medication Select Number: 10 Total Score:: 7 Nutrition Survey Nutrition Survey Instructions Scoring Instructions Exercise - 30-day Assessment Physician Prescribed Exercise Modalities: SciFit Stepper, SciFit Pro-II Ergometer and SciFit Lateral [place] Exercise - 60-day Assessment Visit Date of Eval: 10/13/24 Session #:: 21 Physician Prescribed Exercise Modalities: SciFit Stepper, SciFit Pro-II Ergometer and SciFit Lateral [place] Frequency: 3x/week for 12 weeks [36 sessions] Intensity: 60-80% of age predicted maximum heart rate reserve Duration: 30 - 45 minutes Current METSs:: 3.4 Target Heart Rate:: 86-107 Current RPE:: 13-14 Maximum Excercise HR:: 90 Resting Blood Pressure: 146/58 Maximum Exercise Blood Pressure: 150/54 EKG Type: SB to NSR with occas PAC's Outcomes & Goals Goals:: Verbalizes understanding of THR, RPE & goal METS by session 6, Documents in home exercise log/reports 30 min aerobic 5 day/wk by DC, Demonstrates accurate pulse taking by DC and Other additional outcome/goals: see below Intervention & Plan Exercise Program Goals: Instruct on personal THR & RPE, Instruct on MET level & personal MET goal, Show patient to take own pulse /validate performance until accurate, Instruct on home exercise and Other additional plan/int 30-day Reassessments 30 day Reassessments:: Progressing Physical Activity Home Exercise Physical Activity - Home Exercise: Safe Exercise, Warm-up, Self-monitoring, Cool-Down, Home Exercise > 30 min Daily and Sitting Time <3 hours/daily Outcomes & Goals Outcomes/Goals: Demonstrates correct Warm-up/exercise Cool-Down (S3) if = 2.5 METs, Verbalizes symptoms of exercise intolerance by Session 3 (S3), Demonstrate safe equipment use (S3) & follows exercise prescrition (6) and Other: See below Intervention & Plan Plan/Intervention: Instruct warm-up & cool-down if exercising at > 2 METs, Instruct on symptoms of exercise intolerance & actions to take, Instruct & monitor on saf, Assess intial functional capacity & safety risk and Other See below 30-day Reassessments 30 day Reassessments:: Progressing Reassessment Notes & Comments:: Proper warm up and cool down demonstrated and explained. Pt is able to return demonstration. Exercise - 90-day Assessment Physician Prescribed Exercise Modalities: SciFit Stepper, SciFit Pro-II Ergometer and SciFit Lateral Smt Operator Exercise - Final/Discharge Physician Prescribed Exercise Modalities: SciFit Stepper, SciFit Pro-II Ergometer and SciFit Lateral Smt Operator Nutrition - 30-Day Assessment Weight Mgt (Other Care) Height: 5 ft 10 in Weight:: 174 lb 8 oz BMI: 25.0 Nutrition - 60-Day Assessment Program Goals Nutrition Program Goals Patient has diagnosis of Hyperlipidemia (ICD E78)?: Yes Visit Date of Eval: 10/13/24 Session #:: 21 Cholesterol/Lipids (Other Core Measures) Determine presence & major risk factors that modify LDL goal: Hypertension or hypertensive medication, Low HDL cholesterol <40 mg/dL*, Family history of premature CHD in Male < 55 years: female <65 yearsFa and Age men > 45 years; women >/= 55 years Outcomes/Goals: Pt IDs own risk factors & lifestyle modifications by Session 10, Verbalizes symptoms of angina & response by session 3., Pt independently manages and Other Additional Outcomes/Goals: Intervention/Plan: Advocate for lipid panel cholesterol medication if applicable, Instruct on personal lipid levels & lipid goals/NCEP guidelines, Instruct on cholesterol and Other additional plan/int Diabetes (Other Core Measures) Diabetes Type: Not Applicable Weight Mgt (Other Care) Height: 5 ft 10 in Weight:: 174 lb 8 oz BMI: 25.0 Diagnosis Overweight/Obesity BMI> 30% ICD-10 E66: No Diagnosis High BMI/Morbid Obesity BMI> 35% ICD-10 Z68: No Outcomes/Goals: Pt sets, maintains & shows weight loss goal & trend during rehab and Other additional outcomes/goals Intervention/Plan: Instruct on ideal BMI & set weight loss goal w/patient, Assist pt to ID & incorporate diet changes for weight loss by S9, Refer to Structured Weight Loss program as appropriate, Encourage goal of using 250-300dcal per session for weight loss and Other additional plan/interventions Healthy Eating Habits Will attend diet classes:: Yes Outcomes/Goals:: Consume diet rich in vegs,fruits,whole grain/high fiber,fish,lean meat, Limit sat/trans fats,cholesterol & added salts & sugars and Other additional outcome/goals: Intervention/Plan:: Assess current eating habits and Other Additional plan/interventions 30-day Reassessments:: Progressing Reassessment Notes & Comments:: Pt to attend nutrition class. Pt understands the benefits of a heart healthy low sodium diet. Education Gave educational materials for:: Signs & symptoms of hypoglycemia, Signs & symptoms of hyperglycemia, Relate diabetes to coronary artery disease and Healthy eating Core - Final Assessment Hypertension Resting Blood Pressure:: 150/54 [employer] Hypertension Guidelines Core - 60-Day Assessment Visit Date of Eval: 10/13/24 Session #:: 21 Medication Compliance Preventative Medication(s):: Aspirin, Statin/lipid and Beta jose H/O mental health issues: depression, anxiety, or addiction?: No Doesn?t believe in the benefits of treatment?: No Believes medications are unnecessary or harmful?: No Has a concern about medication side effects?: No Expresses concern over the cost of medications?: No Outcomes/Goals: Verbalizes medications,desired effect & common side effects @ DC, Pt self-reports following medication regimen, Keeps card in wallet w/medications listed by DC and Other additional outcome/goals: Interventions/plans: Instruct on medication effects & side effects, Review medication list w/patient every two weeks, Instruct importance of taking meds as ordered & assist problem solving and Other additional Tobacco Use Tobacco Use: Non-smoker Hypertension Hypertension Diagnosis:: Hypertension ICD-10 I10 Resting Blood Pressure:: 146/58 Resting Blood Pressure:: 150/54 [place] [employer] Hypertension Guidelines Peak Exercise Blood Pressure:: 150/54 Outcomes/Goals: Able to verbalize/achieve optimal blood pressure <130/80, Incorporates diet changes & exercise for blood pressure control by DC and Other additional outcomes/goals Interventions/plan: Instruct on optimal blood pressure, hypertension & medications, Instruct on effects of sodium, alcohol, stress, exercise &hypertension and Other additional plan/interventions 30 day Reassessments:: Progressing Reassessment Notes & Comments:: Pt's bp's are slightly elevated. Pt encouraged to eat a low sodium diet. Will continue to monitor and send report to pt's physician if necessary. Tobacco Cessation Referral Smoking Cessation Referral:: No Individual Education/Counseling:: No Education Schedule Given:: Yes Psychosocial - 30-Day Assess Target Goals Target Goals Referral to Behavioral Health PS - Interventions: Yes: Attend Stress Management Classes Outcomes/Goals: See list Psychosocial Outcomes/Goals:: ID's personal stressors & 2 strategies to manage stress by discharge and Other Additional outcome/goals: Psychosocial - 60-Day Assess VIsit Date of Eval: 10/13/24 Session #:: 21 History of previous Mental disease:: No Target Goals Target Goals Psychosocial Test Tool Used:: [employer] QOL Cardiac and PHQ-9 Questionnaire phq-9 Severity Referral to Behavioral Health PS - Interventions: Yes: Attend Stress Management Classes Outcomes/Goals: See list Psychosocial Outcomes/Goals:: ID's personal stressors & 2 strategies to manage stress by discharge and Other Additional outcome/goals: Intervention/Plan: See List Interventions/Plan:: Assess stressors,coping strategies & signs of derpression on admission, Instruct/assist pt to develop coping & personal stress Mgt strategies, Refer to Behavioral Health if appropriate, Refer to Physician if appropriate, Instruct patient to recognize signs & symptoms of depression, Instruct patient to recog and Other additional plan/intervention 30-day Reassessments: 30 day Reassessments:: Met Reassessment Notes & Comments:: Pt denies any psychosocial issues at this time. Psychosocial - 90-Day Assess Target Goals Target Goals Referral to Behavioral Health PS - Interventions: Yes: Attend Stress Management Classes Psychosocial - Final Assessmen Target Goals Target Goals Referral to Behavioral Health PS - Interventions: Yes: Attend Stress Management Classes Nutrition - 90-Day Assessment Weight Mgt (Other Care) Height: 5 ft 10 in Weight:: 174 lb 8 oz BMI: 25.0 Nutrition - Final Assessment Weight Mgt (Other Care) Height: 5 ft 10 in Weight:: 174 lb 8 oz BMI: 25.0
[2024-10-13 09:57] VITALS: BP 146/58; BP 150/54; BMI 25.0
== END 2024-10-22 23:59 ==
LOC: CR 10:15
PROVIDERS: PCP Family Medicine; Referring Provider Internal Medicine Cardiovascular Disease; Visit Provider Internal Medicine Cardiovascular Disease
DX: Z95.1 Presence of aortocoronary bypass graft (principal); I25.10 Atherosclerotic heart disease of native coronary artery without angina pectoris

== ENCOUNTER 2024-11-15 10:15 | Outpatient (RCR) | payer MEDICARE, OTHER, SELFPAY ==
[2024-10-13 09:57] VITALS: BMI 25.0
[2024-10-23 01:06] VITALS: BP 128/56; BP 146/58; BP 150/54
--- NOTE | 2024-11-11 09:51 | PCM.CR.ITP ---
Exercise - Initial Assessment Physician Prescribed Exercise Modalities: SciFit Stepper, SciFit Pro-II Ergometer and SciFit Lateral [employer] Nutrition - Initial Assessment Weight Mgt (Other Care) Height: 5 ft 10 in Weight:: 177 lb BMI: 25.4 Psychosocial - Initial Assess Target Goals Target Goals Referral to Behavioral Health PS - Interventions: Yes: Attend Stress Management Classes Patient Health Questionnaire PHQ-9 Screening 90-Day Re-eval Assessment: 1. Little interest or pleasure in doing things: Not at all 2. Feeling down, depressed, or hopeless: Not at all 3. Trouble falling or staying asleep, or sleeping too much: Several days 4. Feeling tired or having little energy: Nearly every day 5. Poor appetite or overeating: Not at all 6. Feeling bad about yourself -- or that you are a failure or have let yourself or your family down: Not at all 7. Trouble concentrating on things, such as reading the newspaper or watching television: Not at all 8. Moving or speaking so slowly that other people could have noticed. Or the opposite - being so fidgety or restless that you have been moving around a lot more than usual: Not at all 9. Thoughts that you would be better off , or of hurting yourself in some way: Not at all How difficult have these problems made it for you to do your work, take care of things at home, or get along with other people?: Somewhat difficult Total Score: 4 Self-Efficacy 6-Item Scale 90-Day Re-eval Assessment: We would like to know how confident you are in doing certain activities. Please select your confidence level for: Fatigue Select Number: 3 Physical Discomfort or Pain Select Number: 3 Emotional Distress Select Number: 8 Other Symptoms or Health Problems Select Number: 9 Different Tasks and Activities Select Number: 10 Medication Select Number: 10 Total Score:: 7 Nutrition Survey Nutrition Survey Instructions Scoring Instructions Exercise - 30-day Assessment Physician Prescribed Exercise Modalities: SciFit Stepper, SciFit Pro-II Ergometer and SciFit Lateral [employer] Exercise - 60-day Assessment Physician Prescribed Exercise Modalities: SciFit Stepper, SciFit Pro-II Ergometer and SciFit Lateral [employer] Exercise - 90-day Assessment Visit Date of Eval: 11/11/24 Session #:: 34 Physician Prescribed Exercise Modalities: SciFit Stepper, SciFit Pro-II Ergometer and SciFit Lateral [employer] Frequency: 3x/week for 12 weeks [36 sessions] Intensity: 60-80% of age predicted maximum heart rate reserve Duration: 30 - 45 minutes Current METSs:: 3.4 Target Heart Rate:: 86-114 Current RPE:: 14-15 Maximum Excercise HR:: 108 Resting Blood Pressure: 116/70 Maximum Exercise Blood Pressure: 132/56 EKG Type: NSR-ST with occas PAC's and isolated PVC. Outcomes & Goals Goals:: Verbalizes understanding of THR, RPE & goal METS by session 6, Documents in home exercise log/reports 30 min aerobic 5 day/wk by DC, Demonstrates accurate pulse taking by DC and Other additional outcome/goals: see below Intervention & Plan Exercise Program Goals: Instruct on personal THR & RPE, Instruct on MET level & personal MET goal, Show patient to take own pulse /validate performance until accurate, Instruct on home exercise and Other additional plan/int Physical Activity Home Exercise Physical Activity - Home Exercise: Safe Exercise, Warm-up, Self-monitoring, Cool-Down, Home Exercise > 30 min Daily and Sitting Time <3 hours/daily Outcomes & Goals Outcomes/Goals: Demonstrates correct Warm-up/exercise Cool-Down (S3) if = 2.5 METs, Verbalizes symptoms of exercise intolerance by Session 3 (S3), Demonstrate safe equipment use (S3) & follows exercise prescrition (6) and Other: See below Intervention & Plan Plan/Intervention: Instruct warm-up & cool-down if exercising at > 2 METs, Instruct on symptoms of exercise intolerance & actions to take, Instruct & monitor on saf, Assess intial functional capacity & safety risk and Other See below 30-day Reassessments 30 day Reassessments:: Met Reassessment Notes & Comments:: Pt perez 2 sessions remaining. Pt is ready to exercise on his own. Pt understands safe exercise, workloads, frequency, and duration of exercise. Exercise - Final/Discharge Physician Prescribed Exercise Modalities: SciFit Stepper, SciFit Pro-II Ergometer and SciFit Lateral [place] Nutrition - 30-Day Assessment Weight Mgt (Other Care) Height: 5 ft 10 in Weight:: 177 lb BMI: 25.4 Nutrition - 60-Day Assessment Weight Mgt (Other Care) Height: 5 ft 10 in Weight:: 177 lb BMI: 25.4 Core - 30-Day Assessment Hypertension [place] [employer] Hypertension Guidelines Reassessment Notes & Comments:: Pt's BP's have improved. Will continue to monitor. Core - Final Assessment Hypertension [place] [employer] Hypertension Guidelines Reassessment Notes & Comments:: Pt's BP's have improved. Will continue to monitor. Core - 90 Day Assessment Visit Date of Eval: 11/11/24 Session #:: 34 Medication Compliance Preventative Medication(s):: Aspirin, Statin/lipid and Beta jose H/O mental health issues: depression, anxiety, or addiction?: No Doesn?t believe in the benefits of treatment?: No Believes medications are unnecessary or harmful?: No Has a concern about medication side effects?: No Expresses concern over the cost of medications?: No Outcomes/Goals: Verbalizes medications,desired effect & common side effects @ DC, Pt self-reports following medication regimen, Keeps card in wallet w/medications listed by DC and Other additional outcome/goals: Interventions/plans: Instruct on medication effects & side effects, Review medication list w/patient every two weeks, Instruct importance of taking meds as ordered & assist problem solving and Other additional Tobacco Use Tobacco Use: Non-smoker Hypertension Hypertension Diagnosis:: Hypertension ICD-10 I10 Resting Blood Pressure:: 116/70 [place] [employer] Hypertension Guidelines Peak Exercise Blood Pressure:: 132/56 Outcomes/Goals: Able to verbalize/achieve optimal blood pressure <130/80, Incorporates diet changes & exercise for blood pressure control by DC and Other additional outcomes/goals Interventions/plan: Instruct on optimal blood pressure, hypertension & medications, Instruct on effects of sodium, alcohol, stress, exercise &hypertension and Other additional plan/interventions 30 day Reassessments:: Met Reassessment Notes & Comments:: Pt's BP's have improved. Will continue to monitor. Tobacco Cessation Referral Smoking Cessation Referral:: No Individual Education/Counseling:: No Education Schedule Given:: Yes Psychosocial - 30-Day Assess Target Goals Target Goals Referral to Behavioral Health PS - Interventions: Yes: Attend Stress Management Classes Psychosocial - 60-Day Assess Target Goals Target Goals Referral to Behavioral Health PS - Interventions: Yes: Attend Stress Management Classes Psychosocial - 90-Day Assess VIsit Date of Eval: 11/11/24 Session #:: 34 History of previous Mental disease:: No Target Goals Target Goals Psychosocial Test Tool Used:: [employer] QOL Cardiac and PHQ-9 Questionnaire phq-9 Severity Referral to Behavioral Health PS - Interventions: Yes: Attend Stress Management Classes Outcomes/Goals: See list Psychosocial Outcomes/Goals:: ID's personal stressors & 2 strategies to manage stress by discharge and Other Additional outcome/goals: Intervention/Plan: See List Interventions/Plan:: Assess stressors,coping strategies & signs of derpression on admission, Instruct/assist pt to develop coping & personal stress Mgt strategies, Refer to Behavioral Health if appropriate, Refer to Physician if appropriate, Instruct patient to recognize signs & symptoms of depression, Instruct patient to recog and Other additional plan/intervention 30-day Reassessments: 30 day Reassessments:: Met Reassessment Notes & Comments:: Pt denies any psychosocial issues at this time. Psychosocial - Final Assessmen Target Goals Target Goals Referral to Behavioral Health PS - Interventions: Yes: Attend Stress Management Classes Nutrition - 90-Day Assessment Program Goals Nutrition Program Goals Patient has diagnosis of Hyperlipidemia (ICD E78)?: Yes Visit Date of Eval: 11/11/24 Session #:: 34 Cholesterol/Lipids (Other Core Measures) Determine presence & major risk factors that modify LDL goal: Hypertension or hypertensive medication, Low HDL cholesterol <40 mg/dL*, Family history of premature CHD in Male < 55 years: female <65 yearsFa and Age men > 45 years; women >/= 55 years Outcomes/Goals: Pt IDs own risk factors & lifestyle modifications by Session 10, Verbalizes symptoms of angina & response by session 3., Pt independently manages and Other Additional Outcomes/Goals: Intervention/Plan: Advocate for lipid panel cholesterol medication if applicable, Instruct on personal lipid levels & lipid goals/NCEP guidelines, Instruct on cholesterol and Other additional plan/int Diabetes (Other Core Measures) Diabetes Type: Not Applicable Weight Mgt (Other Care) Height: 5 ft 10 in Weight:: 177 lb BMI: 25.4 Diagnosis Overweight/Obesity BMI> 30% ICD-10 E66: No Diagnosis High BMI/Morbid Obesity BMI> 35% ICD-10 Z68: No Outcomes/Goals: Pt sets, maintains & shows weight loss goal & trend during rehab and Other additional outcomes/goals Intervention/Plan: Instruct on ideal BMI & set weight loss goal w/patient, Assist pt to ID & incorporate diet changes for weight loss by S9, Refer to Structured Weight Loss program as appropriate, Encourage goal of using 250-300dcal per session for weight loss and Other additional plan/interventions Healthy Eating Habits Will attend diet classes:: Yes Outcomes/Goals:: Consume diet rich in vegs,fruits,whole grain/high fiber,fish,lean meat, Limit sat/trans fats,cholesterol & added salts & sugars and Other additional outcome/goals: Intervention/Plan:: Assess current eating habits and Other Additional plan/interventions 30-day Reassessments:: Met Reassessment Notes & Comments:: Pt is at a healthy weight and attending nutrition class this week. Education Gave educational materials for:: Signs & symptoms of hypoglycemia, Signs & symptoms of hyperglycemia, Relate diabetes to coronary artery disease and Healthy eating Nutrition - Final Assessment Weight Mgt (Other Care) Height: 5 ft 10 in Weight:: 177 lb BMI: 25.4
[2024-11-11 09:57] VITALS: BP 116/70
[2024-11-11 10:04] VITALS: BP 116/70; BMI 25.4
== END 2024-11-19 23:59 ==
LOC: CR 10:15
PROVIDERS: PCP Family Medicine; Referring Provider Internal Medicine Cardiovascular Disease; Visit Provider Internal Medicine Cardiovascular Disease
DX: Z95.1 Presence of aortocoronary bypass graft (principal); I25.10 Atherosclerotic heart disease of native coronary artery without angina pectoris
CPT/HCPCS: 93798

== ENCOUNTER → 2025-04-15 | Outpatient (CLI) | payer MEDICARE, OTHER, SELFPAY ==
[2024-11-11 10:04] VITALS: BMI 25.4
[2025-04-15 09:01] LABS: AST(SGOT) 16 U/L (<=37); Alanine Aminotransfer ALT/SGPT 10 U/L (<=46); Albumin, Serum 3.9 g/dL (3.4-4.8); Alkaline Phosphatase 48 U/L (40-129); Bilirubin, Direct 0.19 mg/dL (0.00-0.30); Cholesterol 102 mg/dL (<=200); Globulin 2.3 g/dL (2.2-4.2); Low Density Lipoprotein Calc. 50 mg/dL; Triglycerides 69 mg/dL; Very Low Density Lipoprotein 14 mg/dL (5-40); cholesterol:hdl ratio screen 2.70
== END | disposition home or self-care (01) ==
PROVIDERS: PCP Family Medicine; Referring Provider Internal Medicine Cardiovascular Disease; Visit Provider Internal Medicine Cardiovascular Disease
DX: E78.00 Pure hypercholesterolemia, unspecified (principal)
CPT/HCPCS: 36415; 80061; 80076

== ENCOUNTER → 2025-05-19 | Outpatient (CLI) | payer MEDICARE, OTHER, SELFPAY ==
[2024-11-11 10:04] VITALS: BMI 25.4
--- NOTE | 2025-05-19 07:53 | ECHOLC_ITS ---
Reason For Study Reason For Study: ISCH CMP Procedure This was a limited 2D transthoracic echocardiogram. The study was technically difficult. Contrast injection was performed. Exam performed in department. Left Ventricle Normal left ventricle. Moderate concentric left ventricular hypertrophy. Left ventricular systolic function is normal. The left ventricular ejection fraction is 60 %. No regional wall motion abnormalities noted. Right Ventricle Normal RV size. Normal systolic function. Atria Normal left atrium. Normal right atrium. Mitral Valve Normal mitral valve. Tricuspid Valve Normal tricuspid valve. Aortic Valve Trisinus/trileaflet aortic valve. Pulmonic Valve Normal pulmonic valve. Great Vessels Normal aortic root. The pulmonary artery is normal size. Inferior vena cava collapse with respiration. Pericardium/Pleural No pericardial effusion. Medication 22 gauge I.V. with prn adaptor inserted into right arm. Diluted definity 2ml given slow IV push to enhance endocardial definition. MMode/2D Measurements & Calculations LVIDd: 4.2 cm IVSd: 1.4 cm LAV(MOD- bp): 57.1 ml LVIDs: 3.6 cm LVPWd: 1.3 cm FS: 14.0 % LAV(MOD- bp) Indexed: 29.8 ml/m2 LAV(MOD- sp2): 51.3 ml LAV(MOD- sp4): 57.4 ml SV(MOD-sp4): 77.0 ml SV(sp4- el): 79.8 ml LVAd ap4: 35.1 cm2 LVLd ap4: 8.2 cm SI(MOD-sp4): 40.2 ml/m2 EDV(MOD-sp4): 122.3 ml EDV(sp4-el): 127.2 ml LVAs ap4: 19.6 cm2 LVLs ap4: 6.9 cm ESV(MOD-sp4): 45.3 ml ESV(sp4-el): 47.3 ml EF(MOD-sp4): 63.0 % EF(sp4-el): 62.8 % LA dimension(2D): 4.5 cm LA A4 area: 20.6 cm2 RA A4 area: 19.9 cm2 ECHO/Echo Limited w/Contrast Interpretation Summary Normal left ventricle. Moderate concentric left ventricular hypertrophy. Left ventricular systolic function is normal. The left ventricular ejection fraction is 60 %. Contrast injection was performed. Ordering Physician: Mary Anne Macdonald Referring Physician: Mary Anne Macdonald Performed By: Yissel Shabazz RCS
== END | disposition home or self-care (01) ==
LOC: CVS 07:52
PROVIDERS: PCP Family Medicine; Referring Provider Physician Assistant Medical; Visit Provider Physician Assistant Medical
DX: I42.0 Dilated cardiomyopathy (principal)
CPT/HCPCS: 93308; Q9957; A4216; C8924

== ENCOUNTER 2025-06-29 13:02 | Emergency (ER) | payer OTHER, MEDICARE, SELFPAY ==
[2024-11-11 10:04] VITALS: BMI 25.4
[2025-06-29 13:02] VITALS: BP 172/82; PULSE 66; RESP 16; TEMP 36.7; O2SAT 100; BMI 25.3
[2025-06-29 13:14] VITALS: O2SAT 99
[2025-06-29 14:02] VITALS: BP 184/81; PULSE 73; RESP 17
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
[2025-06-29 14:34] LABS: Anion Gap 10 (5-15); BUN 27 mg/dL (4-19); BUN/Creat Ratio 15.9 RATIO (10-20); Calcium,Total 9.1 mg/dL (7.6-11.0); Carbon Dioxide 23.7 mmol/L (21.0-32.0); Chloride 100 mmol/L (98-108); Estimated Creatinine Clearance 37.64 ml/min (50-250); Glucose 99 mg/dL (70-99); Potassium 5.0 mmol/L (3.3-5.1)
[2025-06-29 14:45] LABS: Hematocrit 33.7 % (40-54); Hemoglobin 11.3 g/dL (13.0-16.5); Immature Granulocytes Count 0.070 X10^3/uL (0.0-0.0); Mean Corp Hgb Conc 33.5 g/dL (32-36); Mean Corpuscular Volume 93.4 fL (80-94); Mean Platelet Vol. 9.4 fl (6.2-12.0); NRBC Flagged by Analyzer 0 % (0-5); Platelet Count 300 K/mm3 (150-450); RBC Distribution Width CV 12.7 % (11.6-14.6); RBC Distribution Width SD 43.6 fl (35.1-43.9); Red Blood Count 3.61 M/mm3 (4.6-6.2); White Blood Count 13.9 K/mm3 (4.4-11.0)
[2025-06-29 15:00] VITALS: BP 158/58; PULSE 75; RESP 16; O2SAT 100
[2025-06-29 15:18] LABS: Mucous, Urine 0 SEEN /hpf (<or=2+); Red Blood Cells-Urine 0 SEEN /hpf (0-5); Squamous Epithelial Cells - UA 0 SEEN /hpf (0-5)
[2025-06-29 15:44] LABS: Color, Urine Yellow (Yellow); Glucose, Dipstick Normal (Normal); Ketone-Dipstick 5 mg/dl (Negative); Leukocyte Esterase-Dipstick Negative /ul (Negative); Nitrite-Dipstick Negative (Negative); Occult Blood-Urine Negative /ul (Negative); Protein-Dipstick 15 mg/dl (Negative); Specific Gravity, Urine 1.010 (1.002-1.030); Urine Bilirubin Dipstick Negative (Negative)
[2025-06-29 15:57] VITALS: BP 172/60; PULSE 64; RESP 16; O2SAT 99
[2025-06-29 16:27] VITALS: BP 169/64; PULSE 64; RESP 15; TEMP 36.6; O2SAT 99
== END 2025-06-29 16:31 | disposition home or self-care (01) ==
PROVIDERS: Emergency Provider Emergency Medicine; PCP Family Medicine; Visit Provider Emergency Medicine
DX: S16.1XXA Strain of muscle, fascia and tendon at neck level, initial encounter (principal); I48.91 Unspecified atrial fibrillation; S00.33XA Contusion of nose, initial encounter; S20.20XA Contusion of thorax, unspecified, initial encounter; V47.5XXA Car driver injured in collision with fixed or stationary object in traffic accident, initial encounter; W22.10XA Striking against or struck by unspecified automobile airbag, initial encounter; I25.2 Old myocardial infarction; Z85.828 Personal history of other malignant neoplasm of skin; J45.909 Unspecified asthma, uncomplicated; Z79.51 Long term (current) use of inhaled steroids; Z79.82 Long term (current) use of aspirin; K21.9 Gastro-esophageal reflux disease without esophagitis; Z79.899 Other long term (current) drug therapy; Z79.02 Long term (current) use of antithrombotics/antiplatelets; Z95.1 Presence of aortocoronary bypass graft; Z23 Encounter for immunization
CPT/HCPCS: 70450; 71250; 72125; 80048; 81001; 85025; 90471; 99285

== ENCOUNTER 2025-09-01 09:49 | Day surgery (SDC) | payer MEDICARE, OTHER, SELFPAY ==
[2024-11-11 10:04] VITALS: BMI 25.4
--- NOTE | 2025-08-30 12:17 | EKG12_ITS ---
Test Reason : PREOP Blood Pressure : */* mmHG Vent. Rate : 54 BPM Atrial Rate : 54 BPM P-R Int : 158 ms QRS Dur : 130 ms QT Int : 472 ms P-R-T Axes : 66 139 15 degrees QTcB Int : 447 ms Sinus bradycardia with sinus arrhythmia Right bundle branch block Left posterior fascicular block Bifascicular block Abnormal ECG Confirmed by Rod Carvajal ([id number]), editor in chief newspaper KAY AVILES ([id number]) on 08/31/2025 11:38:07 AM Referred By: Jesse Rai Confirmed By: Rod Carvajal
--- NOTE | 2025-08-30 14:16 | PAT.ANESEVAL ---
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 When Was Last Pacemaker Check QUESTION #4 FULL TEXT: You/Your Family Experience fever (hyperthermia) with Anesthesia Last Oral Intake Last Oral intake: Last Oral Intake NPO since Meds taken in AM with sips of water? Meds patient instructed to take am of surgery PONV PONV - gardener florist: PONV - gardener florist Female No 08/26/25 15:20 HX of Motion Sickness Yes 08/26/25 15:20 HX of N/V After Surgery No 08/26/25 15:20 Non-Smoker Yes 08/26/25 15:20 Duration of Surgery greater No 08/26/25 15:20 than 60 minutes Number of Risk Factors 2 08/26/25 15:20 PONV Score Moderate Risk 08/26/25 15:20 Height & Weight Height & Weight: Anesthesia: Height & Weight Height 5 ft 10 in 08/22/25 12:57 Respiratory Assessment Respiratory Assessment - gardener florist: Respiratory Tract Infection Hx - gardener florist Hx Respiratory Tract Infection No 08/26/25 15:20 STOP Sleep Apnea STOP Sleep Apnea - gardener florist: STOP Sleep Apnea - gardener florist Hx Hypertension Yes: ON MEDS 08/26/25 15:20 Hx Sleep Apnea No 08/26/25 15:20 CPAP BIPAP Do you snore loudly (louder No 08/26/25 15:20 than talking or can be heard Do you often feel tired/ No 08/26/25 15:20 fatigued/ sleepy during daytime? Has anyone observed you stop No 08/26/25 15:20 breathing during sleep? STOP Results Negative 08/26/25 15:20 QUESTION #5 FULL TEXT : Do you snore loudly (louder than talking or can be heard through closed doors)? Tobacco Use History Tobacco Use History - gardener florist: Tobacco Use History - gardener florist Tobacco Use Smoking Status Never smoker 08/26/25 15:20 Hx Tobacco Use No 08/26/25 15:20 Years Smoking Packs Smoked per Day Smoking Cessation Date was within the last 15 years Hx Smoking Cessation Date Hx Smoking Cessation Counseling Hematologic Medial History Hematologic Hx - gardener florist: Hematologic Medical Hx - rn clinical documentation specialist Hx of Blood Transfusion No 08/26/25 15:20 Hx of Transfusion in last 3 No 08/26/25 15:20 Months Date of Last Transfusion (if within last 3 months) Ever experience any problems No 08/26/25 15:20 with transfusion(s)? Specify any problems Hx of Preganancy in last 3 N/A 08/26/25 15:20 Months Nurse Filling Out Transfusion JZOLLINGE 08/26/25 15:20 & Questions: Date: 08/26/25 08/26/25 15:20 Time: 15:23 08/26/25 15:20 Patient unable to answer at this time (ie. confused, unrespo /Reproduction History /Reproductive History - gardener florist: /Reproductive Hx- gardener florist Hx Now No 08/26/25 15:20 Gestational Age (in weeks): EDC: Hx Hx Para Hx Section SAB No 08/26/25 15:20 Does the father of the baby or his family experience fever w Father of the baby Malignant Hypertension history comment [facility] Medical History (Updated 08/26/25 @ 15:20 by Cheyenne Bhakta) Wears glasses Rash Arthritis Dietary restriction Cardiomyopathy, ischemic History of cardioversion Acute renal failure Cardiogenic shock Atrial fibrillation Osteoporosis Asthma Myocardial infarct Chest pain Hyperglycemia NSTEMI, initial episode of care Squamous cell carcinoma Non-cancerous growth of soft tissue Right shoulder tendonitis GERD (gastroesophageal reflux disease) Right bundle branch block Home Medications ?Medication ?Instructions ?Recorded ?Last Taken ?Type fluticasone propionate 50 2 spray intranasal DAILY PRN 05/16/24 Unknown History mcg/actuation nasal allergy symptoms spray,suspension (24 Hour Allergy Relief) aspirin 81 mg tablet,delayed 81 mg PO QDAY 06/25/24 Unknown History release (Adult Aspirin Regimen) rosuvastatin 10 mg tablet 10 mg PO QDAY #90 tabs 03/28/25 Unknown Rx carvedilol 6.25 mg tablet 6.25 mg PO BID #180 tabs 06/22/25 Unknown Rx furosemide 20 mg tablet 20 mg PO QDAY #90 tabs 06/27/25 Unknown Rx pantoprazole 40 mg tablet,delayed 40 mg PO QDAY #30 tabs 06/27/25 Unknown Rx release Allergy/AdvReac Type Severity Reaction Status Date / Time amoxicillin (From Augmentin) Allergy Severe Abd Verified 08/26/25 15:12 cramps/diarrhea clavulanic acid (From Allergy Severe Abd Verified 08/26/25 15:12 Augmentin) cramps/diarrhea etodolac Allergy Severe liver Verified 08/26/25 15:12 problems fluoxetine (From Prozac) Allergy Intermediate Hives Verified 08/26/25 15:12 Seasonal Allergies: Uncoded Allergy Intermediate sneezing Verified 08/26/25 15:12 Family History Other Heart disease Hypertension Surgical History S/P dialysis catheter insertion Hx of CABG History of tonsillectomy and adenoidectomy Social History household members: spouse housing: house current occupational status: retired Smoking Status: Never smoker substance use type: does not use Audit: Pertinent Findings Pertinent Findings EKG Perinent findings: EKG 11/01/2024. Sinus bradycardia. Right bundle branch block. Echo (EF%) pertinent findings: Echo 05/19/2025. Normal left ventricle. The left ventricular ejection fraction is 60%. Moderate concentric left ventricular hypertrophy. Heart catheterization pertinent findings: Heart cath 05/17/2024. 70% proximal, 95% mid LAD. 70% proximal L CX, 90% proximal OM1, 70% proximal OM2. BAT PERSON proximal RCA, filling via home collaterals and also known collaterals from the left system. Recommendations. Surgery consult for coronary revascularization Consult pertinent findings: Cardiology visit 04/28/2025. 79-year-old male status post coronary bypass graft surgery at [facility] in April 2024. The patient initially had an ischemic dilated cardiomyopathy with an EF of 35% but after revascularization and healing in July 2024 the echo showed an EF of 45%. From a cardiac standpoint, patient is doing well. Additional pertinent findings: Cardiovascular surgery 05/20/2024. Coronary artery bypass grafting x 4 Recommendation Anesthesia Recommendation Anesthesia recommendation: OPTIMIZED for anesthesia
[2025-09-01] VITALS (9 sets, daily range): BP systolic 136–168; BP diastolic 65–86; PULSE 69–84; RESP 16–18; TEMP 35.9–36.4; O2SAT 98–100; BMI 23.7
[2025-09-01] MEDS: Lactated Ringers 1,000 ML 15 ML IV ×2 (10:29→15:03)
--- NOTE | 2025-09-01 11:08 | PCM.PRE.AN2 ---
ASA Classification* ASA Classification ASA Classification: 3 Assessment & Plan Anesthesia* Anesthesia Assessment Anesthesia Assessment: Discussed sedation and/or anesthesia options, risks, benefits, and alternatives with patient/parents/legal guardian/POA. Questions invited. The patient/parents/legal guardian/POA seems to understand and agrees to proceed with anesthesia plan. Reviewed the physical assessment, medical history, allergy history and patient home medications list prior to surgery/procedure/anesthetic and documented any changes. Performed airway and anesthesia risk assessments. Anesthesia Type Anesthesia Type: General History Source History Obtained from:: Patient and Chart Anesthesia Focused Assessment* Temperature: 97.1 F Pulse Rate: 70 Blood Pressure: 168/79 Respiratory Rate: 18 Pulse Ox: 100 Oxygen Delivery Method: Room Air Airway Assessment Mouth opens: >3 cm Mallampati Score: III Teeth Condition: Caps/Crowns (Patient has several crowns. They are all tight.) and Chipped/Broken (Patient has a broken right lower molar.) Neck Range of motion (ROM): Limited ROM (Slight Decrease) Labs Anesthesia Preop lab: CBC WBC, (4.4-11.0) 13.9 K/mm3 H 06/29/25, 13:10 RBC, (4.6-6.2) 3.61 M/mm3 L 06/29/25, 13:10 Hgb, (13.0-16.5) 11.3 g/dL L 06/29/25, 13:10 Hct, (40-54) 33.7 % L 06/29/25, 13:10 Plt Count, (150-450) 300 K/mm3 06/29/25, 13:10 CHEMISTRY Potassium, (3.3-5.1) 5.0 mmol/L 06/29/25, 13:10 Sodium, (133-145) 134 mmol/L 06/29/25, 13:10 Magnesium, (1.6-2.6) 2.0 mg/dL 05/16/24, 07:54 Phosphorus, (2.5-4.9) 2.4 mg/dL L 05/16/24, 07:54 BUN, (4-19) 27 mg/dL H 06/29/25, 13:10 Creatinine, (0.70-1.20) 1.67 mg/dL H 06/29/25, 13:10 Glucose, (70-99) 99 mg/dL 06/29/25, 13:10 TSH, (0.358-3.740) 1.600 uIU/mL 05/16/24, 07:54 COAG PT, (11.7-14.9) 14.1 SECONDS 05/16/24, 03:41 Pre-Assessment Diagnosis/Proposed Procedure Planned Operative Procedure(s): (R) Lap Robotic Inguinal Hernia w/mesh Anesthesia History Anesthesia History - head of integrated media: Anesthesia History - head of integrated media Hx Hospitalization Yes 08/26/25 15:20 Any Problems With Anesthesia No 08/26/25 15:20 Cholinesterase deficiency No 08/26/25 15:20 You/Your Family Experience No 08/26/25 15:20 fever (hyperthermia) with Relationship Recent Exposure to Contagious No 09/01/25 10:16 Disease Does patient have nerve No 08/26/25 15:20 stimulator Patient instructed to have device shut off --Does patient have Pacemaker No 09/01/25 10:16 or ICD? When Was Last Pacemaker Check QUESTION #4 FULL TEXT: You/Your Family Experience fever (hyperthermia) with Anesthesia Last Oral Intake Last Oral intake: Last Oral Intake NPO since 07:00 09/01/25 10:16 Meds taken in AM with sips of Yes 09/01/25 10:16 water? Meds patient instructed to pantoprazole, asa, 09/01/25 10:16 take am of surgery carvedilol Any additional information?: Yes Meds taken in AM with sips of water?: Yes PONV PONV - head of integrated media: PONV - head of integrated media Female No 08/26/25 15:20 HX of Motion Sickness Yes 08/26/25 15:20 HX of N/V After Surgery No 08/26/25 15:20 Non-Smoker Yes 08/26/25 15:20 Duration of Surgery greater No 08/26/25 15:20 than 60 minutes Number of Risk Factors 2 08/26/25 15:20 PONV Score Moderate Risk 08/26/25 15:20 Height & Weight Height & Weight: Anesthesia: Height & Weight Height 5 ft 10 in 09/01/25 10:16 Weight: 75 kg 09/01/25 10:16 Body Mass Index (BMI) 23.7 09/01/25 10:16 Respiratory Assessment Respiratory Assessment - head of integrated media: Respiratory Tract Infection Hx - head of integrated media Hx Respiratory Tract Infection No 08/26/25 15:20 STOP Sleep Apnea STOP Sleep Apnea - head of integrated media: STOP Sleep Apnea - head of integrated media Hx Hypertension Yes: ON MEDS 08/26/25 15:20 Hx Sleep Apnea No 08/26/25 15:20 CPAP BIPAP Do you snore loudly (louder No 08/26/25 15:20 than talking or can be heard Do you often feel tired/ No 08/26/25 15:20 fatigued/ sleepy during daytime? Has anyone observed you stop No 08/26/25 15:20 breathing during sleep? STOP Results Negative 08/26/25 15:20 QUESTION #5 FULL TEXT : Do you snore loudly (louder than talking or can be heard through closed doors)? Tobacco Use History Tobacco Use History - head of integrated media: Tobacco Use History - head of integrated media Tobacco Use Smoking Status Never smoker 08/26/25 15:20 Hx Tobacco Use No 08/26/25 15:20 Years Smoking Packs Smoked per Day Smoking Cessation Date was within the last 15 years Hx Smoking Cessation Date Hx Smoking Cessation Counseling Hematologic Medial History Hematologic Hx - head of integrated media: Hematologic Medical Hx - solvent mixer Hx of Blood Transfusion No 08/26/25 15:20 Hx of Transfusion in last 3 No 08/26/25 15:20 Months Date of Last Transfusion (if within last 3 months) Ever experience any problems No 08/26/25 15:20 with transfusion(s)? Specify any problems Hx of Preganancy in last 3 N/A 08/26/25 15:20 Months Nurse Filling Out Transfusion JZOLLINGE 08/26/25 15:20 & Questions: Date: 08/26/25 08/26/25 15:20 Time: 15:23 08/26/25 15:20 Patient unable to answer at this time (ie. confused, unrespo /Reproduction History /Reproductive History - head of integrated media: /Reproductive Hx- head of integrated media Hx Now No 08/26/25 15:20 Gestational Age (in weeks): EDC: Hx Hx Para Hx Section SAB No 08/26/25 15:20 Does the father of the baby or his family experience fever w Father of the baby Malignant Hypertension history comment Active Medications Active Medications: Current Medications Generic Name Dose Route Start Last Admin Trade Name Presleyq PRN Reason Stop Dose Admin Lactated Ringer's 1,000 mls @ 15 mls/hr 09/01/25 10:15 09/01/25 10:29 IV 15 mls/hr .Q48H ELISHA Administration PFS Medical History Wears glasses Rash Arthritis Dietary restriction Cardiomyopathy, ischemic History of cardioversion Acute renal failure Cardiogenic shock Atrial fibrillation Osteoporosis Asthma Myocardial infarct Chest pain Hyperglycemia NSTEMI, initial episode of care Squamous cell carcinoma Non-cancerous growth of soft tissue Right shoulder tendonitis GERD (gastroesophageal reflux disease) Right bundle branch block Home Medications ?Medication ?Instructions ?Recorded ?Last Taken ?Type fluticasone propionate 50 2 spray intranasal DAILY PRN 05/16/24 Unknown History mcg/actuation nasal allergy symptoms spray,suspension (24 Hour Allergy Relief) aspirin 81 mg tablet,delayed 81 mg PO QDAY 06/25/24 09/01/25 History release (Adult Aspirin Regimen) rosuvastatin 10 mg tablet 10 mg PO QDAY #90 tabs 03/28/25 08/31/25 Rx carvedilol 6.25 mg tablet 6.25 mg PO BID #180 tabs 06/22/25 09/01/25 Rx furosemide 20 mg tablet 20 mg PO QDAY #90 tabs 06/27/25 08/31/25 Rx pantoprazole 40 mg tablet,delayed 40 mg PO QDAY #30 tabs 06/27/25 09/01/25 Rx release Allergy/AdvReac Type Severity Reaction Status Date / Time amoxicillin (From Augmentin) Allergy Severe Abd Verified 09/01/25 10:15 cramps/diarrhea clavulanic acid (From Allergy Severe Abd Verified 09/01/25 10:15 Augmentin) cramps/diarrhea etodolac Allergy Severe liver Verified 09/01/25 10:15 problems fluoxetine (From Prozac) Allergy Intermediate Hives Verified 09/01/25 10:15 Seasonal Allergies: Uncoded Allergy Intermediate sneezing Verified 09/01/25 10:15 Family History Other Heart disease Hypertension Surgical History S/P dialysis catheter insertion Hx of CABG History of tonsillectomy and adenoidectomy Social History household members: spouse housing: house current occupational status: retired Smoking Status: Never smoker substance use type: does not use Review of Systems (Anesthesia) ROS Narrative System reviewed and no additional complaints, except as documented.
--- NOTE | 2025-09-01 11:57 | PCM.HP.STD ---
HPI - General General Date of Admission: 09/01/25 Date of Service: 09/01/25 Chief Complaint: Right inguinal hernia HPI Narrative Patient is a 80-year-old male who presents today for elective repair of a right inguinal hernia. Patient was seen to my office recently with a painful bulge in the right groin. He was diagnosed with a hernia. I offered him a robotic right inguinal hernia pair with mesh. We discussed the details of the planned procedure including the risk benefits and alternatives. He wished to proceed. [facility] Medical History Wears glasses Rash Arthritis Dietary restriction Cardiomyopathy, ischemic History of cardioversion Acute renal failure Cardiogenic shock Atrial fibrillation Osteoporosis Asthma Myocardial infarct Chest pain Hyperglycemia NSTEMI, initial episode of care Squamous cell carcinoma Non-cancerous growth of soft tissue Right shoulder tendonitis GERD (gastroesophageal reflux disease) Right bundle branch block Home Medications ?Medication ?Instructions ?Recorded ?Last Taken ?Type fluticasone propionate 50 2 spray intranasal DAILY PRN 05/16/24 Unknown History mcg/actuation nasal allergy symptoms spray,suspension (24 Hour Allergy Relief) aspirin 81 mg tablet,delayed 81 mg PO QDAY 06/25/24 09/01/25 History release (Adult Aspirin Regimen) rosuvastatin 10 mg tablet 10 mg PO QDAY #90 tabs 03/28/25 08/31/25 Rx carvedilol 6.25 mg tablet 6.25 mg PO BID #180 tabs 06/22/25 09/01/25 Rx furosemide 20 mg tablet 20 mg PO QDAY #90 tabs 06/27/25 08/31/25 Rx pantoprazole 40 mg tablet,delayed 40 mg PO QDAY #30 tabs 06/27/25 09/01/25 Rx release Allergy/AdvReac Type Severity Reaction Status Date / Time amoxicillin (From Augmentin) Allergy Severe Abd Verified 09/01/25 10:15 cramps/diarrhea clavulanic acid (From Allergy Severe Abd Verified 09/01/25 10:15 Augmentin) cramps/diarrhea etodolac Allergy Severe liver Verified 09/01/25 10:15 problems fluoxetine (From Prozac) Allergy Intermediate Hives Verified 09/01/25 10:15 Seasonal Allergies: Uncoded Allergy Intermediate sneezing Verified 09/01/25 10:15 Family History Other Heart disease Hypertension Surgical History S/P dialysis catheter insertion Hx of CABG History of tonsillectomy and adenoidectomy Social History household members: spouse housing: house current occupational status: retired Smoking Status: Never smoker substance use type: does not use Vital Signs Vital Signs Vital Signs: 09/01/25 10:16 09/01/25 10:16 09/01/25 10:16 Temperature 97.1 F L Temperature Source Temporal Pulse Rate 70 Respiratory Rate 18 Respiratory Pattern Normal Blood Pressure 168/79 H Blood Pressure Mean 108 Blood Pressure Source Monitor Blood Pressure Position Semi-Fowlers Blood Pressure Location Right Arm Baseline BP 168/79 Pulse Ox 100 Oxygen Delivery Method Room Air 09/01/25 11:18 Temperature 97.1 F L Temperature Source Pulse Rate 70 Respiratory Rate 18 Respiratory Pattern Blood Pressure 168/79 H Blood Pressure Mean Blood Pressure Source Blood Pressure Position Blood Pressure Location Baseline BP Pulse Ox 100 Oxygen Delivery Method Room Air Weight Weight: 165 lb 5.547 oz Body Mass Index (BMI) 23.7 Physical Exam Const alert, oriented x3 and no apparent distress Assessment & Plan Assessment/Plan (1) Right inguinal hernia: PLAN: Plan The patient is a 80-year-old male with a right inguinal hernia. Patient presents today for right inguinal hernia repair with mesh performed robotically. We discussed the details of the planned procedure and he wishes to proceed. This will be scheduled in a timely manner.
[2025-09-01] MEDS: Lidocaine 1% (5 ml sdv) 5 ML Vial IV (12:22)
[2025-09-01] MEDS: fentaNYL 100 MCG/2 ML Ampul IV (12:41)
[2025-09-01] MEDS: Bupiv/Epi 0.25% 30 ML Vial (13:50)
--- NOTE | 2025-09-01 13:59 | DCINST_ITS ---
Discharge Instructions Diet Discharge Diet: Light diet - advance as tolerated Activity Discharge Activity: Return to Normal Activity and May Shower May shower in (days): 1 Ice area for (Minutes): 30 Lifting Restrictions: No lifting pushing or pulling more than 20 pounds for 6 weeks Dressing / Incision Call your doctor if your incision/area has: Continuous Slow Oozing, Sudden Increased Bleeding, Increased Pain/ Swelling, Increased Redness, Foul Smelling Discharge and Swelling at the incision site Call your doctor if you observe: Fever of 101 or Higher Cleanse incision/area with: Soap & Water Follow Up Care Please Follow Up With: Jesse Rai MD When: 2 weeks. Please call office to schedule appointment Test Results: Test results from this visit will be discussed in further detail at your follow- up appointment, if applicable. Discharge Plan Admission Primary Reason for Your Visit: Robotic right inguinal hernia pair with mesh Attending Provider: Jesse Rai Primary Care Provider: Care Physician,No Primary Instructions Print Language: [place] Discharge Orders/Prescriptions Prescriptions: New oxycodone 5 mg tablet 5 mg PO Q8H PRN (Reason: pain) 3 Days Qty: 12 0RF Continued aspirin [Adult Aspirin Regimen] 81 mg tablet,delayed release (DR/EC) 81 mg PO QDAY fluticasone propionate [24 Hour Allergy Relief] 50 mcg/actuation spray,suspension 2 spray intranasal DAILY PRN (Reason: allergy symptoms) Rx Instructions: administer into each nostril rosuvastatin 10 mg tablet 10 mg PO QDAY Qty: 90 3RF carvedilol 6.25 mg tablet 6.25 mg PO BID Qty: 180 3RF pantoprazole 40 mg tablet,delayed release (DR/EC) 40 mg PO QDAY Qty: 30 11RF furosemide 20 mg tablet 20 mg PO QDAY Qty: 90 3RF Referrals / Follow Up: Agus Mckeon MD [Non-Staff, Family Practice] Disposition Disposition (needs filled in before D/C Order can be placed): Home, Self Care
--- NOTE | 2025-09-01 14:05 | PCM.OPRPT ---
Procedures Digestive 40xxx-49xxx: 28075 Lap ing hernia repair init Operative Report (Standard) Operative Information Date of Procedure: 09/01/25 Pre-Operative Diagnosis: Right inguinal hernia Post-Operative Diagnosis: Same Surgery/Procedure Performed: Robotic right inguinal hernia pair with mesh whipper: Yes Chief Operations Officer: Taryn Quintana Tasks completed by pharmacy innovation assistant: Closing, Trocar and Other Additional assistant professor of marine biology?: No Type of Anesthesia: General and Local RN Documented Start/Stop Times: Operation Date: 09/01/25 11:30 Case Time Into Pre-Op 09/01/25 10:01 Out of Pre-Op 09/01/25 12:11 Anesthesia Start 09/01/25 12:15 Into Room 09/01/25 12:15 Procedure Start 09/01/25 12:43 Procedure Start Time: :43 Procedure Stop Time: 14:00 Select all DRAINS/GRAFTS/IMPLANTS that apply: None Special Medications: 2 g Ancef IV Estimated Blood Loss: 10ml Specimen collected: No Description of surgery: The patient is a 80-year-old male who presented the office recently with a right inguinal hernia. I offered him a robotic right inguinal hernia pair with mesh. We discussed the details of the planned procedure and he wished to proceed. He was brought to the op room today following informed consent. Preoperative antibiotics were given and a timeout was performed. He was placed supine on the operative table with arms outstretched and arm boards. General anesthesia was induced. An 8 mm incision was made just above the umbilicus which a 5 mm trocar was placed optically. This was placed without incident. The abdomen is then fully insufflated with CO2 gas. A 5 mm 0 degree scope was inserted. There were no signs of bowel or vascular injury. Patient was then placed in mild Trendelenburg positioning. An 8 mm trocar was placed under direct vision on on the right side of the abdomen. Another 8 mm trocar was placed on the left side of the abdomen. The original trocar at the umbilicus was then switched out to an 8 mm trocar as well. The da Marc robot was then brought onto the operative field. The right inguinal hernia was clearly visualized. The peritoneum overlying the hernia was then incised in a lateral to medial direction. A subperitoneal plane was then developed with blunt dissection. Khang's ligament was dissected out medially. The indirect hernia sac was then dissected free from the cord structures and eventually was reduced. Once the dissection was complete, a ProGrip 10 x 15 cm piece of mesh was selected. This was trimmed to fit the operative field. It was inserted into the abdomen after being placed in antibiotic solution. It was then unrolled. It fit over the operative field perfectly. The peritoneum was then closed using a 6 inch V-Loc suture. This closed the peritoneum nicely. The trocars were then opened up and insufflation was allowed to escape. All counts were correct. The incisions were then closed with 4-0 Vicryl. Skin glue was applied as dressing. He was awakened from anesthesia and taken recovery in good condition Surgical Findings: Right inguinal hernia Complications Complications: No Admit VTE Documentation VTE Present on Admission: No VTE Mechan Device Prophylaxis: SCD's Reason prophylaxis not ordered: Treatment Not Indicated
--- NOTE | 2025-09-01 14:20 | PCM.POST.ANE ---
Anesthesia: Postop Eval I Current Vital Signs Temperature: 97.6 F Pulse Rate: 78 Blood Pressure: 147/68 Respiratory Rate: 16 Pulse Ox: 100 Oxygen Delivery Method: Room Air Assessment Airway patent: Yes Spontaneous unlabored respirations: Yes Mental status: Awake and Calm nausea: No Vomiting: No Anesthesia Complication: No Fluid Hydration Crystalloid volume administer (ml): 900 Total IV fluid infused: 900 Progress Note Anesthesia document: Postop Eval 1 completed: Yes
--- NOTE | 2025-09-01 21:06 | POSTOPAN2_ITS ---
Anesthesia Postop Eval I Sum Postop Eval Completion status Anesthesia document: Postop Eval 1 completed: Yes Anesthesia Postop Eval I Summary Anesthesia Postop Eval I Summary: Anesthesia Postop Eval I: Assessment Summary Airway patent Yes 09/01/25 14:21 [email or web address] Spontaneous unlabored Yes 09/01/25 14:21 CORK [email or web address] respirations Mental status Awake,Calm 09/01/25 14:21 [email or web address] nausea No 09/01/25 14:21 CORK [email or web address] Vomiting No 09/01/25 14:21 CORK [email or web address] Anesthesia Postop Eval I: Fluid Summary Crystalloid volume administer 900 09/01/25 14:21 [email or web address] (ml) Colloids volume administered ( ml) Blood Product volume administered (ml) Total IV fluid infused 900 09/01/25 14:21 CORK [email or web address] Anesthesia Postop Eval I: Summary Notes Anesthesia Complication No 09/01/25 14:21 CORK [email or web address] Anesthesia Complication Comment: Post-operative progress note Anesthesia: Postop Eval II Evaluation Mental status: Awake and Calm Pain Level: 1 nausea: No Vomiting: No Complications Anesthesia Complication: No
--- NOTE | 2025-09-01 21:06 | PCM.POSTANE2 ---
Anesthesia Postop Eval I Sum Postop Eval Completion status Anesthesia document: Postop Eval 1 completed: Yes Anesthesia Postop Eval I Summary Anesthesia Postop Eval I Summary: Anesthesia Postop Eval I: Assessment Summary Airway patent Yes 09/01/25 14:21 MIRROR [email or web address] Spontaneous unlabored Yes 09/01/25 14:21 MIRROR [email or web address].[email or web address] respirations Mental status Awake,Calm 09/01/25 14:21 MIRROR [email or web address] nausea No 09/01/25 14:21 MIRROR SPECIALIST.[email or web address] Vomiting No 09/01/25 14:21 MIRROR [email or web address].[email or web address] Anesthesia Postop Eval I: Fluid Summary Crystalloid volume administer 900 09/01/25 14:21 MIRROR [email or web address] (ml) Colloids volume administered ( ml) Blood Product volume administered (ml) Total IV fluid infused 900 09/01/25 14:21 MIRROR [email or web address] Anesthesia Postop Eval I: Summary Notes Anesthesia Complication No 09/01/25 14:21 MIRROR [email or web address].GDOTT Anesthesia Complication Comment: Post-operative progress note Anesthesia: Postop Eval II Evaluation Mental status: Awake and Calm Pain Level: 1 nausea: No Vomiting: No Complications Anesthesia Complication: No
== END 2025-09-01 17:04 | disposition home or self-care (01) ==
LOC: SDC 09:50 → AC 09:59
PROVIDERS: Referring Provider Surgery; Visit Provider Surgery
PROC: (CPT 49650; principal; 2025-09-01 11:10)
DX: K40.90 Unilateral inguinal hernia, without obstruction or gangrene, not specified as recurrent (principal); Z79.82 Long term (current) use of aspirin; K21.9 Gastro-esophageal reflux disease without esophagitis; Z79.899 Other long term (current) drug therapy; J45.909 Unspecified asthma, uncomplicated
CPT/HCPCS: 49650; S2900; 00830; 93005; C1781; J2405